=== PATIENT | male | born 1975 | race Two or more races ===

== ENCOUNTER 2024-05-03 19:42 | Inpatient (IN) | payer MEDICAID, OTHER ==
[~2024-05-03] VITALS: Ht 172.7 cm; Wt 95.0 kg
--- NOTE | 2024-05-03 20:03 | ED.PDOC ---
General HPI Comments 48 year old male who came to ER for flank pains. In has history of left-sided kidney stones, status post left nephrolithotomy. For the past 2 days, patient has been having right lower back pain, radiating towards her right flank and right lower quadrant. Complaining also of dysuria, nausea and vomiting. States she could not keep anything in, and currently also complaining of weakness and dizziness. Chief Complaint: Flank Pain Time Seen by MD: 20:02 Reviewed notes: Nurses Notes Allergies: Coded Allergies: NO KNOWN ALLERGIES (Unverified , 05/03/24) Information Source: Patient Mode of Arrival: EMS Severity: Moderate Inability to void: Mild Timing: Days Duration: Since onset Has not urinated for: Minutes Prehospital treatment: None Onset: Spontaneous Symptoms: Dysuria History of: UTI, Kidney stone Location: (R) Flank associated signs and symptoms: Abdominal Pain, Nausea, Vomiting, Flank Pain, Back Pain, Dysuria Past Medical History PAST MEDICAL HISTORY: Kidney Stones Surgical History: Hernia Repair Surgical History (Other): left kidney stone removal Family History Family History: Reviewed,noncontributory to illness Social History Smoker: Non-Smoker Alcohol: Denies ETOH Use Drugs: Denies Drug Use Lives In: Home Constitutional: denies: chills, diaphoresis, fatigue, fever, malaise, sweats, weakness, others EENTM: denies: blurred vision, double vision, ear bleeding, ear discharge, ear drainage, ear pain, ear ringing, eye pain, eye redness, hearing loss, mouth pa in, mouth swelling, nasal discharge, nose bleeding, nose congestion, nose pain, photophobia, tearing, throat pain, throat swelling, voice changes, others Respiratory: denies: cough, hemoptysis, orthopnea, SOB at rest, shortness of breath, SOB with excertion, stridor, wheezing, others Cardiovascular: denies: chest pain, dizzy spells, diaphoresis, Dyspnea on exertion, edema, irregular heart beat, left arm pain, lightheadedness, palpitations, PND, syncope, others Gastrointestinal: reports: abdominal pain, nausea, vomiting; denies: abdomen distended, blood streaked bowels, constipated, diarrhea, dysphagia, difficulty swallowing, hematemesis, melena, poor appetite, poor fluid intake, rectal bleeding, rectal pain, others Genitourinary: reports: dysuria, flank pain; denies: burning, frequency, hematuria, incontinence, penile discharge, penile sore, pain, testicle pain, testicle swelling, urgency, others Neurological: reports: dizziness, weakness; denies: fainting, headache, left sided numbness, left sided weakness, numbness, paresthesia, pre-existing deficit, right sided numbness, right sided weakness, seizure, speech problems, tingling, tremors, others Musculoskeletal: denies: back pain, gout, joint pain, joint swelling, muscle pain, muscle stiffness, neck pain, others Integumetry: denies: bruises, change in color, change in hair/nails, dryness, l aceration, lesions, lumps, rash, wounds, others Allergic/Immunocompromised: denies: Difficulty Healing, Frequent Infections, Hives, Itching, others Hematologic/Lymphatic: denies: anemia, blood clots, easy bleeding, easy bruising, swollen glands, others Endocrine: denies: excessive hunger, excessive sweating, excessive thirst, excessive urination, flushing, intolerance to cold, intolerance to heat, unexplained weight gain, unexplained weight loss, others Psychiatric: denies: anxiety, bipolar disorder, depression, hopeless, panic disorder, schizophrenia, sleepless, suicidal, others Physical Exam General Appearance: Moderate Distress, No Apparent Distress, Normal HEENT: Normal ENT Inspection, Pharynx Normal, TMs Normal Neck: Full Range of Motion, Non-Tender, Normal, Normal Inspection Respiratory: Chest Non-Tender, Lungs Clear, No Accessory Muscle Use, No Respiratory Distress, Normal Breath Sounds Cardiovascular: No Edema, No JVD, No Murmur, No Gallop, Normal Peripheral Pulses, Regular Rate/Rhythm Breast Exam: Deferred Gastrointestinal: No Organomegaly, No Pulsatile Mass, Normal Bowel Sounds, RLQ, Soft, Tenderness (right CVA') Genitalia: Deferred Pelvic: Deferred Rectal: Deferred Extremities: No calf tenderness, Normal capillary refill, Normal inspection, Normal range of motion, Non-tender, No pedal edema Musculoskeletal : Apperance: Normal Neurologic: Alert, life skills trainer II-XII nml as Tested, No Motor Deficits, Normal Affect, Normal Mood, No Sensory Deficits Cerebellar Function: Normal Reflexes: Normal Skin: Dry, Normal Color, Warm Lymphatic: No Adenopathy Was a procedure done? Was a procedure done?: No Differential Diagnosis Kidney stone (Female): N/A Kidney stone (Male): Pyelonephritis, Renal failure, Strain, Urinary obstruction, Urolithiasis, Renal infarction, Urinary tract infection Urinary Problem (Male): Urethritis, Urinary Retention, Urolithiasis, UTI X-Ray, Labs, Meds, VS Vital Signs Date Time Temp Pulse Resp B/P (MAP) Pulse Ox O2 Delivery O2 Flow Rate FiO2 05/03/24 21:20 115 21 98/57 (71) 96 05/03/24 20:29 113 18 97 Room Air* 0 21 05/03/24 20:29 113 18 106/67 (80) 97 05/03/24 19:53 97.7 115 22 104/64 (77) 97 Current Medications Medications (Trade) Dose Ordered Sig/Yaquelin Route Start Time Stop Time Status Last Admin Ondansetron HCl (Zofran) 4 mg ONCE ONCE IV 05/03/24 20:00 05/03/24 20:01 DC 05/03/24 20:34 Ketorolac Tromethamine (Toradol Injection) 30 mg ONCE ONCE IV 05/03/24 20:00 05/03/24 20:01 DC 05/03/24 20:34 Ceftriaxone Sodium 50 ml @ 100 mls/hr ONCE ONCE IV 05/03/24 20:00 05/03/24 20:29 DC 05/03/24 20:35 Sodium Chloride 2,000 ml @ 1,000 mls/hr Q2H ONCE IV 05/03/24 21:17 05/03/24 23:16 05/03/24 21:21 CT SCAN ABDOMEN AND PELVIS WITHOUT CONTRAST CLINICAL HISTORY: flank pain TECHNIQUE: Helical axial images are obtained from the lung bases through the pelvis without oral contrast. No intravenous contrast was administered. Coronal and sagittal reformatted images were generated from thin section reconstructions. One or more of the following radiation dose reduction techniques were used for this examination: automated exposure control, ad justment of the mA and/or kV according to patient size, use of iterative reconstruction technique. COMPARISON: None FINDINGS: LOWER THORAX: Imaged lung bases are grossly clear. ABDOMEN AND PELVIS: Evaluation of visceral and vascular structures is limited due to lack of contrast administration. As visualized, the unenhanced liver, spleen, pancreas and adrenals appear grossly unremarkable. No sizable, radiopaque cholelithiasis or biliary ductal dilatation appreciated. Moderate to severe right hydronephrosis. An approximately 1.5 x 0.6 cm calculus is seen within the right proximal ureter at the ureteropelvic junction. Right perinephric inflammatory changes. Additional nonobstructing bilateral renal calculi also noted. No evidence of abdominal aortic aneurysm. No evidence of bowel obstruction. Normal caliber appendix. No free intraperitoneal air or fluid identified. No sizable bladder calculus. Fat containing right inguinal hernia. No destructive osseous lesions identified. IMPRESSION: Obstructing right proximal ureteral calculus as above. Urinalysis urine drug screen CBC and CMP are pending. The patient will be admitted to the hospitalist for further evaluation and care. Time of 1ST Reevaluation: 19:56 Reevaluation 1ST: Unchanged Patient Education/Counseling: Diagnosis, Treatment Family Education/Counseling: No Family Present Departure 1 Departure Time of Disposition: 21:29 Impression: Primary Impression: Urethral calculus Disposition: ADMITTED INPATIENT Condition: Guarded Critical Care Note Critical Care Time?: No Stability Stability form required: No Heart Score Heart Score: Heart Score Response (Comments) Value History N/A 0 EKG N/A 0 Age N/A 0 Risk Factors N/A 0 Troponin N/A 0 Total 0 I personally scribed for AAKASH RIVERA MD ([email or web address]) on 05/03/24 at 20:03. El ectronically submitted by Tung Stevens ([email or web address]). I personally scribed for AAKASH RIVERA MD ([email or web address]) on 05/03/24 at 20:59. Electronically submitted by Tung Stevens ([email or web address]). AAKASH RIVERA MD May 03, 2024 20:03
[2024-05-03 20:29] VITALS: PULSE 113; RESP 18; O2SAT 97
[2024-05-03] MEDS: ONDANSETRON HCL 4 MG/2 ML VIAL IV ONE (20:34)
[2024-05-03] MEDS: KETOROLAC TROMETH 30 MG/ML 1ML VIAL IV ONE (20:34)
[2024-05-03] MEDS: cefTRIAXone 1GM/50ML D5W 50 ML IV ONE (20:35)
[2024-05-03] MEDS: HYDROmorphone HCL 2 MG/ML VL/or syr IV ONE (20:37)
--- NOTE | 2024-05-03 20:40 | DVH ---
CT SCAN ABDOMEN AND PELVIS WITHOUT CONTRAST CLINICAL HISTORY: flank pain TECHNIQUE: Helical axial images are obtained from the lung bases through the pelvis without oral cont rast. No intravenous contrast was administered. Coronal and sagittal reformatted images were generate d from thin section reconstructions. One or more of the following radiation dose reduction techniques were used for this examination: automated exposure control, adjustment of the mA and/or kV according to patient size, use of iterative reconstruction technique. COMPARISON: None FINDINGS: LOWER THORAX: Imaged lung bases are grossly clear. ABDOMEN AND PELVIS: Evaluation of visceral and vascular structures is limited due to lack of contrast administration. As visualized, the unenhanced liver, spleen, pancreas and adrenals appear grossly unremarkable. No si zable, radiopaque cholelithiasis or biliary ductal dilatation appreciated. Moderate to severe right hydronephrosis. An approximately 1.5 x 0.6 cm calculus is seen within the ri ght proximal ureter at the ureteropelvic junction. Right perinephric inflammatory changes. Additional nonobstructing bilateral renal calculi also noted. No evidence of abdominal aortic aneurysm. No evidence of bowel obstruction. Normal caliber appendix. No free intraperitoneal air or fluid iden tified. No sizable bladder calculus. Fat containing right inguinal hernia. No destructive osseous lesions identified. IMPRESSION: Obstructing right proximal ureteral calculus as above.
[2024-05-03] MEDS: SODIUM CHLORIDE 0.9% 2,000 ML IV ONE (21:21)
[2024-05-03 22:09] LABS: Alanine Aminotransferase 22 U/L (7-40); Albumin 3.5 g/dL (3.2-4.8); Alkaline Phosphatase 95 U/L (46-116); Anion Gap 12 (5-15); Aspartate Aminotransferase 19 U/L (13-40); Carbon Dioxide 24 mmol/L (20-31); Glucose 84 mg/dL (74-106); Potassium 4.2 mmol/L (3.5-5.1)
[2024-05-03 22:10] LABS: Bilirubin, Total 0.9 mg/dL (0.2-1.0); Total Protein 6.6 g/dL (5.7-8.2)
[2024-05-03 22:14] LABS: Blood Urea Nitrogen 73 mg/dL (9-23); Calcium 8.2 mg/dL (8.7-10.4); Chloride 92 mmol/L (98-107); Sodium 128 mmol/L (136-145)
[2024-05-03 23:17] LABS: Hematocrit 40.1 % (41.0-53.0); Hemoglobin 13.7 g/dL (13.5-17.5); Mean Corpuscular Hemoglobin 30.1 pg (28.0-32.0); Mean Corpuscular Hgb Conc. 34.1 g/dL (32.0-36.0); Mean Corpuscular Volume 88.2 fL (80.0-100.0); Platelet Count (auto) 79 10^3/uL (140-450); Red Blood Cells 4.55 10^6/uL (4.5-5.90); Red Cell Distribution Width 13.2 % (11.8-14.3); White Blood Cell 11.8 10^3/uL (4.4-10.8)
[2024-05-03 23:28] LABS: Basophils % (manual) 0 (0.0-2.0); Blast Cells 0; Eosinophils % (manual) 0 (0-7); Metamyelocytes % 0; Promyelocytes % 0; Reactive Lymphocytes 0
[2024-05-03] MEDS ORDERED: ACETAMINOPHEN 325 MG TAB PO PRN (23:45)
[2024-05-03] MEDS ORDERED: TEMAZEPAM 15 MG CAP PO PRN (23:45)
[2024-05-03 23:51] LABS: Band Neutrophils % (manual) 9; Large Platelets FEW; Lymphocytes % (manual) 5 (10.0-50.0); Monocytes % (manual) 5 (0-12); Myelocytes % 1; Platelet Estimate Decreased
[2024-05-04] VITALS (9 sets, daily range): BP systolic 86–135; BP diastolic 55–89; PULSE 79–115; RESP 14–27; TEMP 97.5–98.2; O2SAT 90–99
--- NOTE | 2024-05-04 00:16 | DVHHP2 ---
History of Present Illness Reason for Visit: Flank pain History of Present Illness 48-year-old male presents for evaluation of flank pain. Patient presents with a history of kidney stones. He reports a two day history of right-sided flank pain. Also reports nausea with vomiting. Denies dysuria. Reports intermittent chills. No other acute complaints reported. Past Medical History Kidney stones Past Surgical History Left nephrectomy Family History Noncontributory Smoke: No ALCOHOL: none Drugs: None Lives: with Family Review of Systems Review of Systems Review of systems are currently negative otherwise addressed in HPI. Allergies: Coded Allergies: NO KNOWN ALLERGIES (Unverified , 05/03/24) Medications Current Medications Medications Dose Ordered Sig/Yaquelin Route Start Time Stop Time Status Last Admin Dose Admin Acetaminophen/ Hydrocodone Bitart 1 tab Q4HP PRN PO 05/03/24 23:45 Temazepam 15 mg QHSP PRN PO 05/03/24 23:45 Ondansetron HCl 4 mg Q4HP PRN IV 05/03/24 23:45 Acetaminophen 650 mg Q6HP PRN PO 05/03/24 23:45 Morphine Sulfate 2 mg Q4HPRN PRN IV 05/03/24 23:45 Ceftriaxone Sodium 50 ml @ 100 mls/hr DAILY@09 IV 05/04/24 09:00 Exam Vital Signs Vital Signs Date Time Temp Pulse Resp B/P (MAP) Pulse Ox O2 Delivery O2 Flow Rate FiO2 05/04/24 00:00 100 19 98/56 (70) 05/03/24 23:03 99 05/03/24 20:29 Room Air* 0 21 05/03/24 19:53 97.7 Exam Gen: 48-year-old male in mild distress. Skin: Warm, dry, normal color and texture, no rash. HEENT: Normocephalic atraumatic, mucous membranes moist and pink. Neck: Cervical and supraclavicular nodes normal without enlargement, trachea is midline, thyroid gland is normal without masses. Pulmonary: Clear to auscultation and percussion bilaterally. Cardiac: Regular rate and rhythm. No murmur Abdomen: Soft, right CVA tenderness, nondistended, bowel sounds present all 4 quadrants, no guarding, no rigidity, no organomegaly. Extremities: No cyanosis, clubbing, no edema Neuro: Cranial nerves II through XII grossly intact, normal affect and speech, no focal motor deficits. Labs/Xrays ORDERING PHYSICIAN: AAKASH RIVERA MD PROCEDURE(s): ABPL - CT AB PEL WO CON-NO ORAL OR IV REASON: flank pain ORDER NUMBER(s): [id number], ACCESSION NUMBER(s): [id number] CT SCAN ABDOMEN AND PELVIS WITHOUT CONTRAST CLINICAL HISTORY: flank pain TECHNIQUE: Helical axial images are obtained from the lung bases through the pelvis without oral contrast. No intravenous contrast was administered. Coronal and sagittal reformatted images were generated from thin section reconstructions. One or more of the following radiation dose reduction techniques were used for this examination: automated exposure control, adjustment of the mA and/or kV according to patient size, use of iterative macey nstruction technique. COMPARISON: None FINDINGS: LOWER THORAX: Imaged lung bases are grossly clear. ABDOMEN AND PELVIS: Evaluation of visceral and vascular structures is limited due to lack of contrast administration. As visualized, the unenhanced liver, spleen, pancreas and adrenals appear grossly unremarkable. No sizable, radiopaque cholelithiasis or biliary ductal dilatation appreciated. Moderate to severe right hydronephrosis. An approximately 1.5 x 0.6 cm calculus is seen within the right proximal ureter at the ureteropelvic junction. Right perinephric inflammatory changes. Additional nonobstructing bilateral renal calc isis also noted. No evidence of abdominal aortic aneurysm. No evidence of bowel obstruction. Normal caliber appendix. No free intraperitoneal air or fluid identified. No sizable bladder calculus. Fat containing right inguinal hernia. No destructive osseous lesions identified. IMPRESSION: Obstructing right proximal ureteral calculus as above. Labs Test 05/03/24 21:40 Range/Units White Blood Count 11.8 H 4.4-10.8 10^3/uL Red Blood Count 4.55 4.5-5.90 10^6/uL Hemoglobin 13.7 13.5-17.5 g/dL Hematocrit 40.1 L 41.0-53.0 % Mean Corpuscular Volume 88.2 80.0-100.0 fL Mean Corpuscular Hemoglobin 30.1 28.0-32.0 pg Mean Corpuscular Hemoglobin Concent 34.1 32.0-36.0 g/dL Red Cell Distribution Width 13.2 11.8-14.3 % Platelet Count 79 L 140-450 10^3/uL Mean Platelet Volume 8.8 6.9-10.8 fL Neutrophils (%) (Auto) 37.0-80.0 % Lymphocytes (%) (Auto) 10.0-50.0 % Monocytes (%) (Auto) 0.0-12.0 % Basophils (%) (Auto) 0.0-2.0 % Neutrophils # (Auto) 1.6-8.6 10 ^3/uL Lymphocytes # (Auto) 0.4-5.4 10 ^3/uL Monocytes # (Auto) 0-1.3 10 ^3/uL Differential Total Cells Counted 100.0 100 Neutrophils % (Manual) 80 37.0-80.0 Band Neutrophils % (Manual) 9 Lymphocytes % (Manual) 5 L 10.0-50.0 Monocytes % (Manual) 5 0-12 Eosinophils % (Manual) 0 0-7 Basophils % (Manual) 0 0.0-2.0 Metamyelocytes % (manual) 0 Myelocytes % (Manual) 1 Promyelocytes % (Manual) 0 Blast Cells % (Manual) 0 Reactive Lymphocytes 0 Platelet Estimate Decreased Large Platelets Few [place] Cells Few Sodium Level 128 L 136-145 mmol/L Potassium Level 4.2 3.5-5.1 mmol/L Chloride Level 92 L 98-107 mmol/L Carbon Dioxide Level 24 20-31 mmol/L Anion Gap 12 5-15 Blood Urea Nitrogen 73 H 9-23 mg/dL Creatinine 5.21 H 0.700-1.30 mg/dL Glomerular Filtration Rate Calc 13 >90 mL/min BUN/Creatinine Ratio 14.0 10.0-20.0 Serum Glucose 84 74-106 mg/dL Calcium Level 8.2 L 8.7-10.4 mg/dL Total Bilirubin 0.9 0.2-1.0 mg/dL Aspartate Amino Transferase (AST) 19 13-40 U/L Alanine Aminotransferase (ALT) 22 7-40 U/L Alkaline Phosphatase 95 46-116 U/L Total Protein 6.6 5.7-8.2 g/dL Albumin 3.5 3.2-4.8 g/dL Assessment/Plan Assessment/Plan Assessment Obstructive uropathy Urethral calculus Severe right hydronephrosis Plan Admit the patient to [facility] [place] to the hospitalist Urology consultation Pain management Rocephin Continue treatment per orders. Plan discussed with: Patient My Orders Orders - JOHNATHON ADEN Procedure Category Date Status Time *Dr. [facility] CONS 05/03/24 Transmitted -[place] 23:13 * Urology Consult CONS 05/03/24 Transmitted 23:13 Drug Screen LAB 05/03/24 Logged 23:42 Urinalysis LAB 05/03/24 Logged 23:42 Basic Metabolic Panel LAB 05/04/24 Logged 04:00 Admit ADMIT 05/03/24 Transmitted 23:42 Renal DIET 05/04/24 Transmitted Standard(2gna,3gk,Lopho) Breakfast Hydrocodone-Acet PHA 05/03/24 In Process 5/325mg Tab ([place] 23:45 Temazepam (Restoril) PHA 05/03/24 In Process 23:45 Ondansetron Hcl PHA 05/03/24 In Process (Zofran) 23:45 Condition: Stable SHY 05/03/24 In Process 23:42 Acetaminophen Tablet PHA 05/03/24 In Process (Tylenol Tablet) 23:45 Bedrest With Bathroom SHY 05/03/24 In Process Privileg 23:42 Morphine Sulfate PHA 05/03/24 In Process Injection 23:45 Ceftriaxone 1gm/50ml PHA 05/04/24 In Process D5w (Rocephin) 09:00 Date of Service: May 03, 2024 Billing Provider: JOHNATHON ADEN Common Visit Codes: [id number] INP/OBS CARE (MOD) JOHNATHON ADEN May 04, 2024 00:16
[2024-05-04] MEDS: MORPHINE SULFATE INJ 2 MG/ml SYRG IV PRN (07:06)
[2024-05-04 07:39] LABS: Potassium 4.1 mmol/L (3.5-5.1)
[2024-05-04 07:40] LABS: Anion Gap 13 (5-15); Carbon Dioxide 24 mmol/L (20-31)
[2024-05-04 07:45] LABS: BUN/Creatinine Ratio 14.7 (10.0-20.0)
[2024-05-04 07:47] LABS: Blood Urea Nitrogen 79 mg/dL (9-23); Calcium 8.6 mg/dL (8.7-10.4); Chloride 94 mmol/L (98-107); Glucose 65 mg/dL (74-106); Sodium 131 mmol/L (136-145)
[2024-05-04] MEDS: cefTRIAXone 1GM/50ML D5W 50 ML IV SCH (08:44)
[2024-05-04] MEDS: SODIUM CHLORIDE 0.9% 1,000 ML IV SCH (09:00)
[2024-05-04 09:26] LABS: Amphetamine Screen, Urine Pos (NEGATIVE); Barbiturate Scree,Urine Neg (NEGATIVE); Cocaine Screen, Urine Neg (NEGATIVE)
[2024-05-04 09:39] LABS: Cannabinoid Screen, Urine Pos (NEGATIVE)
[2024-05-04] MEDS: HYDROcodone-ACET 5/325MG TAB PO PRN (10:25)
[2024-05-04 10:52] LABS: Benzodiazephine Screen, Urine Neg (NEGATIVE); Opiate Scree,Urine Neg (NEGATIVE); Phencyclidine Screen, Urine Neg (NEGATIVE)
--- NOTE | 2024-05-04 11:27 | DVHINCON2 ---
Date of service: May 04, 2024 Reason for Consultation Acute kidney injury History of Present Illness 48-year-old male past medical history of kidney stones. Reports last kidney stone was several years ago and reports on the left side which required a nephrostomy tube at that time. He is a poor historian. Says he has not seek medical attention in several years. He presents to the hospital complaining of flank pain. He is found to have proximal right UPJ obstructing kidney stone. Nephrology consulted due to elevated creatinine level. hs drug screen is + for methamphetamines Allergies: Coded Allergies: NO KNOWN ALLERGIES (Unverified , 05/03/24) Home Meds No Active Prescriptions or Reported Meds Current Medications Current Medications Medications (Trade) Dose Ordered Sig/Yaquelin Route PRN Reason Start Time Stop Time Status Last Admin Acetaminophen/ Hydrocodone Bitart (Cylinder 5/325MG Tab) 1 tab Q4HP PRN PO MODERATE PAIN (4-6 PAIN SCALE) 05/03/24 23:45 05/04/24 10:25 Temazepam (Restoril) 15 mg QHSP PRN PO FOR INSOMNIA 05/03/24 23:45 Ondansetron HCl (Zofran) 4 mg Q4HP PRN IV NAUSEA / VOMITING 05/03/24 23:45 Acetaminophen (Tylenol Tablet) 650 mg Q6HP PRN PO PAIN SCALE 1-3 OR TEMP>100.4 05/03/24 23:45 Morphine Sulfate 2 mg Q4HPRN PRN IV SEVERE PAIN (7-10 PAIN SCALE) 05/03/24 23:45 05/04/24 07:06 Ceftriaxone Sodium 50 ml @ 100 mls/hr DAILY@09 IV 05/04/24 09:00 05/04/24 08:44 Sodium Chloride 1,000 ml @ 125 mls/hr Q8H IV 05/04/24 09:00 05/04/24 09:00 Family History: Patient reports no known family medical history. Review of Systems Flank pain H&P Exam Vital Signs/I&O Vital Sign Date Time Temp Pulse Resp B/P (MAP) Pulse Ox O2 Delivery O2 Flow Rate FiO2 05/04/24 09:00 97.8 88 17 123/76 (92) 99 97.8 05/04/24 08:00 Room Air* 0 21 Intake and Output 05/03/24 05/04/24 19:00 07:00 Intake Total 50 ml Balance 50 ml Intake Oral 0 ml IV Total 50 ml Physical Exam Middle-aged male Body covered in tattoos Not in overt distress Abdomen soft Lungs clear Mild CVA tenderness on the right side No pitting edema Regular rate and rhythm Labs/Diagnostic Data Labs/Diagnostic Data Laboratory Tests Test 05/04/24 08:38 05/04/24 06:09 05/03/24 21:40 Range/Units Urine Opiates Screen Neg NEGATIVE Urine Fentanyl Screen Pos NEGATIVE Urine Barbiturates Screen Neg NEGATIVE Urine Phencyclidine Screen Neg NEGATIVE Urine Amphetamines Screen Pos NEGATIVE Urine Benzodiazepines Screen Neg NEGATIVE Urine Cocaine Screen Neg NEGATIVE Urine Cannabinoids Screen Pos NEGATIVE Sodium Level 131 L 128 L 136-145 mmol/L Potassium Level 4.1 4.2 3.5-5.1 mmol/L Chloride Level 94 L 92 L 98-107 mmol/L Carbon Dioxide Level 24 24 20-31 mmol/L Anion Gap 13 12 5-15 Blood Urea Nitrogen 79 H 73 H 9-23 mg/dL Creatinine 5.36 H 5.21 H 0.700-1.30 mg/dL Glomerular Filtration Rate Calc 12 13 >90 mL/min BUN/Creatinine Ratio 14.7 14.0 10.0-20.0 Serum Glucose 65 L 84 74-106 mg/dL Hemoglobin A1c 5.0 <5.7 % A1C Uric Acid 8.2 3.7-9.2 mg/dL Calcium Level 8.6 L 8.2 L 8.7-10.4 mg/dL Vitamin D 25-Hydroxy 18.3 L 30.0-100 ng/mL White Blood Count 11.8 H 4.4-10.8 10^3/uL Red Blood Count 4.55 4.5-5.90 10^6/uL Hemoglobin 13.7 13.5-17.5 g/dL Hematocrit 40.1 L 41.0-53.0 % Mean Corpuscular Volume 88.2 80.0-100.0 fL Mean Corpuscular Hemoglobin 30.1 28.0-32.0 pg Mean Corpuscular Hemoglobin Concent 34.1 32.0-36.0 g/dL Red Cell Distribution Width 13.2 11.8-14.3 % Platelet Count 79 L 140-450 10^3/uL Mean Platelet Volume 8.8 6.9-10.8 fL Neutrophils (%) (Auto) 37.0-80.0 % Lymphocytes (%) (Auto) 10.0-50.0 % Monocytes (%) (Auto) 0.0-12.0 % Basophils (%) (Auto) 0.0-2.0 % Neutrophils # (Auto) 1.6-8.6 10 ^3/uL Lymphocytes # (Auto) 0.4-5.4 10 ^3/uL Monocytes # (Auto) 0-1.3 10 ^3/uL Differential Total Cells Counted 100.0 100 Neutrophils % (Manual) 80 37.0-80.0 Band Neutrophils % (Manual) 9 Lymphocytes % (Manual) 5 L 10.0-50.0 Monocytes % (Manual) 5 0-12 Eosinophils % (Manual) 0 0-7 Basophils % (Manual) 0 0.0-2.0 Metamyelocytes % (manual) 0 Myelocytes % (Manual) 1 Promyelocytes % (Manual) 0 Blast Cells % (Manual) 0 Reactive Lymphocytes 0 Platelet Estimate Decreased Large Platelets Few [place] Cells Few Total Bilirubin 0.9 0.2-1.0 mg/dL Aspartate Amino Transferase (AST) 19 13-40 U/L Alanine Aminotransferase (ALT) 22 7-40 U/L Alkaline Phosphatase 95 46-116 U/L Total Protein 6.6 5.7-8.2 g/dL Albumin 3.5 3.2-4.8 g/dL Assessment Acute kidney injury in the setting of urinary obstruction Right obstructing kidney stone Urinary tract infection Methamphetamine abuse IV fluid hydration rate of 125 cc/hour Obtaining radiology consultation for percutaneous nephrostomy tube obtain PTH, uric acid and vitamin D level IV antibiotics and urinary culture There is no baseline renal function for comparison however patient is not altered at this time and electrolytes are within acceptable limits there is no emergent indication for hemodialysis at this time we will continue medical therapy. We will monitor closely Plan discussed with: Patient REMIGIO RIOS MD May 04, 2024 11:27
[2024-05-04] MEDS ORDERED: MEROPENEM 1GM IVPB 50 ML IV ONE (11:45)
[2024-05-04 11:48] LABS: Urine Bacteria FEW /hpf (None Seen); Urine Blood 1+ /uL (Negative); Urine Clarity Turbid (Clear); Urine Color Light-Orange (Yellow); Urine Mucus MANY (None Seen); Urine Protein, UAD 1+ (Negative); Urine Specific Gravity 1.011 (1.001-1.035); Urine Sperm PRESENT /hpf (None Seen); Urine Squamous Epithelial Cell None Seen /hpf (<5); Urine Urobilinogen Normal (Negative); Urine WBC 34 /HPF (0-3)
--- NOTE | 2024-05-04 11:50 | DVHPN2 ---
Progress Note Date Seen: May 04, 2024 Medical Necessity Reason Pt with a Central, PICC or Fol: No Subjective Patient reports: No new complaints Review of Systems: HEENT:Normal, CVS:Normal, RESPIRATORY:Normal, GI:Normal, :Normal, MSK:Normal, NEURO:Normal Objective vital signs Vital Sign Date Time Temp Pulse Resp B/P (MAP) Pulse Ox O2 Delivery O2 Flow Rate FiO2 05/04/24 09:00 97.8 88 17 123/76 (92) 99 97.8 05/04/24 08:00 Room Air* 0 21 Total Intake and Output 05/03/24 05/03/24 05/04/24 15:00 23:00 07:00 Intake Total 50 ml 0 ml Balance 50 ml 0 ml medications Current Medications Medications Dose Ordered Sig/Yaquelin Route Start Time Stop Time Status Last Admin Dose Admin Acetaminophen/ Hydrocodone Bitart 1 tab Q4HP PRN PO 05/03/24 23:45 05/04/24 10:25 1 TAB Temazepam 15 mg QHSP PRN PO 05/03/24 23:45 Ondansetron HCl 4 mg Q4HP PRN IV 05/03/24 23:45 Acetaminophen 650 mg Q6HP PRN PO 05/03/24 23:45 Morphine Sulfate 2 mg Q4HPRN PRN IV 05/03/24 23:45 05/04/24 07:06 2 MG Sodium Chloride 1,000 ml @ 125 mls/hr Q8H IV 05/04/24 09:00 05/04/24 09:00 125 MLS/HR Examination: GENERAL:Normal, HEENT:Normal, NECK:Normal, LUNGS:Normal, CVS:Normal, ABDOMEN:Normal, MSK:Normal, SKIN:Normal, NEURO:Normal, :Normal laboratory and microbiology Laboratory Tests 05/04/24 06:09 05/03/24 21:40 Test 05/04/24 06:09 Range/Units Serum Glucose 65 L 74-106 mg/dL Problem List/Assessment/Plan Problem List/Assessment/Plan #1 uti ?sepsis ?esbl: iv meropenem #2 right renal stone with hydronephrosis: nephrostomy tube #3 acute renal failure ? vasomotor nephropathy ?obstructive: ivf #4 drug abuse with amphetamines/fentanyl #5 thrombocytopenia advance care planning- full code- time spent 19 mins Plan discussed with: Patient My Orders My Orders Orders - JOHNATHON HORVATH MD Procedure Category Date Status Time Urine Bacterial NAREN 05/04/24 Transmitted Culture 11:44 Meropenem 1gm Ivpb X PHA 05/04/24 Transmitted ONE 11:45 Meropenem 1gm PHA 05/04/24 Transmitted Q8h(Gfr>50) 14:00 Complete Blood Count LAB 05/05/24 Verified 06:00 Comprehensive LAB 05/05/24 Verified Metabolic Panel 06:00 PTPTT LAB 05/05/24 Verified 04:00 Chest Portable XY 05/04/24 Verified 11:47 Date of Service: May 04, 2024 Billing Provider: JOHNATHON HORVATH MD Common Visit Codes: [id number] INP/OBS CARE(HIGH) Secondary Visit Codes: [id number] CARE PLAN 30 MINUTES JOHNATHON HORVATH MD May 04, 2024 11:50
[2024-05-04] MEDS: MEROPENEM 500MG IVPB 50 ML IV ONE (13:23)
--- NOTE | 2024-05-04 13:53 | DVH ---
CHEST RADIOGRAPH Indication: renal failure Technique: Single frontal view of the chest was obtained Comparison: None FINDINGS: Lines and Tubes: None Lungs: No focal consolidation. Pleura: No effusion. No pneumothorax. Cardiomediastinal contours: Unremarkable Bones: No acute osseous abnormality. IMPRESSION: No acute cardiopulmonary disease.
[2024-05-04] MEDS ORDERED: MEROPENEM 1GM IVPB 50 ML IV SCH (14:00)
[2024-05-04] MEDS: ERGOCALCIFEROL 50,000 UNIT(1.25MG) CAP PO SCH (15:00)
[2024-05-05] VITALS (13 sets, daily range): BP systolic 87–125; BP diastolic 60–75; PULSE 91–107; RESP 13–29; TEMP 97.5–98.1; O2SAT 92–98
[2024-05-05 06:41] LABS: Hematocrit 39.3 % (41.0-53.0); Hemoglobin 13.2 g/dL (13.5-17.5); Mean Corpuscular Hgb Conc. 33.6 g/dL (32.0-36.0)
[2024-05-05 06:44] LABS: Mean Corpuscular Hemoglobin 29.8 pg (28.0-32.0); Mean Corpuscular Volume 88.5 fL (80.0-100.0); Red Blood Cells 4.44 10^6/uL (4.5-5.90); Red Cell Distribution Width 13.7 % (11.8-14.3); White Blood Cell 17.3 10^3/uL (4.4-10.8)
[2024-05-05 06:48] LABS: INR 1.24 (0.9-1.15); Partial Thromboplastin Time 41.1 SEC (24.5-34.5); Prothrombin Time 12.9 sec (9.3-11.8)
[2024-05-05 07:08] LABS: Basophils % (manual) 0 (0.0-2.0); Blast Cells 0; Eosinophils % (manual) 0 (0-7); Metamyelocytes % 0; Myelocytes % 0; Promyelocytes % 0; Reactive Lymphocytes 0
[2024-05-05 07:39] LABS: Band Neutrophils % (manual) 2; Lymphocytes % (manual) 5 (10.0-50.0); Monocytes % (manual) 11 (0-12)
[2024-05-05 07:40] LABS: Platelet Estimate Decreased
[2024-05-05 07:41] LABS: Platelet Count (auto) 41 10^3/uL (140-450)
[2024-05-05] MEDS: SODIUM CHLORIDE 0.9% 2,050 ML IV ONE (07:45)
[2024-05-05 07:49] LABS: Alanine Aminotransferase 26 U/L (7-40); Anion Gap 14 (5-15); BUN/Creatinine Ratio 16.5 (10.0-20.0); Glucose 78 mg/dL (74-106); Total Protein 5.7 g/dL (5.7-8.2)
[2024-05-05 08:00] LABS: Albumin 2.9 g/dL (3.2-4.8); Alkaline Phosphatase 180 U/L (46-116); Aspartate Aminotransferase 42 U/L (13-40); Bilirubin, Total 2.7 mg/dL (0.2-1.0); Calcium 8.2 mg/dL (8.7-10.4); Carbon Dioxide 19 mmol/L (20-31); Chloride 94 mmol/L (98-107); Sodium 127 mmol/L (136-145)
[2024-05-05 08:04] LABS: Blood Urea Nitrogen 93 mg/dL (9-23)
--- NOTE | 2024-05-05 09:01 | DVH ---
INDICATION: HYDRONEPHROSIS TECHNIQUE: Multiple real-time sonographic images of the kidneys and bladder were obtained. COMPARISON: None FINDINGS: The right kidney measures 14 cm in length, which is normal in size. There is normal echogenicity of t he right kidney. Moderate right hydronephrosis The left kidney measures 10 cm in length, which is normal in size. There is normal echogenicity of th e left kidney. No hydronephrosis. No large intraluminal masses are seen in the bladder. IMPRESSION: moderate right hydronephrosis
[2024-05-05] MEDS: VANCOMYCIN 1GM/250ML KIT 250 ML IV ONE (09:29)
--- NOTE | 2024-05-05 10:05 | DVHPN2 ---
Progress Note Date Seen: May 05, 2024 Medical Necessity Reason Pt with a Central, PICC or Fol: No Subjective Patient reports: No new complaints Review of Systems: HEENT:Normal, CVS:Normal, RESPIRATORY:Normal, GI:Normal, :Normal, MSK:Normal, NEURO:Normal Objective vital signs Vital Sign Date Time Temp Pulse Resp B/P (MAP) Pulse Ox O2 Delivery O2 Flow Rate FiO2 05/05/24 09:20 97.7 100 18 94/61 (72) 94 97.7 05/04/24 20:00 Room Air* 0 21 Total Intake and Output 05/04/24 05/04/24 05/05/24 15:00 23:00 07:00 Intake Total 200 ml 3325 ml 1400 ml Output Total 825 ml 400 ml Balance 200 ml 2500 ml 1000 ml medications Current Medications Medications Dose Ordered Sig/Yaquelin Route Start Time Stop Time Status Last Admin Dose Admin Acetaminophen/ Hydrocodone Bitart 1 tab Q4HP PRN PO 05/03/24 23:45 05/05/24 00:13 1 TAB Temazepam 15 mg QHSP PRN PO 05/03/24 23:45 Ondansetron HCl 4 mg Q4HP PRN IV 05/03/24 23:45 Acetaminophen 650 mg Q6HP PRN PO 05/03/24 23:45 Morphine Sulfate 2 mg Q4HPRN PRN IV 05/03/24 23:45 05/05/24 02:57 2 MG Sodium Chloride 1,000 ml @ 125 mls/hr Q8H IV 05/04/24 09:00 05/05/24 00:18 125 MLS/HR Meropenem 50 ml @ 17 mls/hr Q12HR IV 05/05/24 12:00 Ergocalciferol 50,000 unit Q7D PO 05/04/24 15:00 Examination: GENERAL:Normal, HEENT:Normal, NECK:Normal, LUNGS:Normal, CVS:Normal, ABDOMEN:Normal, MSK:Normal, SKIN:Normal, NEURO:Normal, :Normal laboratory and microbiology Laboratory Tests 05/05/24 06:00 Test 05/05/24 06:00 Range/Units Serum Glucose 78 74-106 mg/dL Microbiology Date/Time Source Procedure Growth Status 05/04/24 13:36 Voided Urine Urine Culture - Preliminary Resulted Problem List/Assessment/Plan Problem List/Assessment/Plan #1 uti with sepsis ?esbl: iv meropenem #2 right renal stone with hydronephrosis: nephrostomy tube today #3 acute renal failure ? vasomotor nephropathy ?obstructive: ivf #4 drug abuse with amphetamines/fentanyl #5 thrombocytopenia #6 liver failure #7 hyponatremia advance care planning- full code- time spent 19 mins Plan discussed with: Patient My Orders My Orders Orders - JOHNATHON HORVATH MD Procedure Category Date Status Time Urine Bacterial NAREN 05/04/24 In Process Culture 11:44 Chest Portable XY 05/04/24 Resulted 11:47 Meropenem 500mg Ivpb PHA 05/05/24 In Process (Merrem 500mg/Ns) 12:00 Transfer Orders XFER 05/05/24 Transmitted 08:24 Us Guidance For US 05/05/24 Logged Needle Placeme 09:28 Date of Service: May 05, 2024 Billing Provider: JOHNATHON HORVATH MD Common Visit Codes: [id number] INP/OBS CARE(HIGH) JOHNATHON HORVATH MD May 05, 2024 10:05
[2024-05-05] MEDS: fentaNYL CITRATE 100 MCG/2 ML VL ONE ×2 (10:10→10:22)
[2024-05-05] MEDS: fentaNYL CITRATE 100 MCG/2 ML VL IV ONE (10:14)
[2024-05-05] MEDS: MIDAZOLAM HCL 2MG/2ML 2ml VIAL (1mg/ml) ONE (10:22)
[2024-05-05] MEDS: LIDOCAINE 2%HCL (LOCAL ANESTH.) INJ 20ML MDV ONE (10:23)
[2024-05-05] MEDS: IODIXANOL 320MG/ML 100ML BTL IV ONE (10:35)
[2024-05-05] MEDS: MEROPENEM 500MG IVPB 50 ML IV SCH (12:57)
--- NOTE | 2024-05-05 12:59 | DVHINCON2 ---
Date of service: May 05, 2024 Referring Physician Hospitalist Reason for Consultation Right hydronephrosis with obstructive uropathy History of Present Illness Patient admitted for right flank pain has bilateral nephrolithiasis and obstructing right proximal ureteral calculus with moderate hydronephrosis. He is undergoing a right percutaneous nephrostomy tube placement per Interventional Radiology at this time. 48 year old male who came to ER for flank pains. In has history of left-sided kidney stones, status post left nephrolithotomy. For the past 2 days, patient has been having right lower back pain, radiating towards her right flank and right lower quadrant. Complaining also of dysuria, nausea and vomiting. States she could not keep anything in, and currently also complaining of weakness and dizziness. Chief Complaint: Flank Pain Reviewed notes: Nurses Notes Allergies: Coded Allergies: NO KNOWN ALLERGIES (Unverified , 05/03/24) Information Source: Patient Mode of Arrival: EMS Severity: Moderate Inability to void: Mild Timing: Days Duration: Since onset Has not urinated for: Minutes Prehospital treatment: None Onset: Spontaneous Symptoms: Dysuria History of: UTI, Kidney stone Location: (R) Flank associated signs and symptoms: Abdominal Pain, Nausea, Vomiting, Flank Pain, Back Pain, Dysuria Past Medical History Kidney Stones Past Surgical History Hernia Repair Surgical History (Other): left kidney stone removal Family History: Patient reports no known family medical history. Allergies: Coded Allergies: NO KNOWN ALLERGIES (Unverified , 05/03/24) Home Meds No Active Prescriptions or Reported Meds Current Medications Current Medications Medications (Trade) Dose Ordered Sig/Yaquelin Route PRN Reason Start Time Stop Time Status Last Admin Meropenem 50 ml @ 17 mls/hr Q8HR IV 05/04/24 14:00 05/04/24 12:16 DC Meropenem 50 ml @ 17 mls/hr Q12HR IV 05/05/24 12:00 Ergocalciferol (Vitamin D 50,000 Unit) 50,000 unit Q7D PO 05/04/24 15:00 Review of Systems Constitutional: denies: chills, diaphoresis, fatigue, fever, malaise, sweats, weakness, others EENTM: denies: blurred vision, double vision, ear bleeding, ear discharge, ear drainage, ear pain, ear ringing, eye pain, eye redness, hearing loss, mouth pain, mouth swelling, nasal discharge, nose bleeding, nose congestion, nose pain, photophobia, tearing, throat pain, throat swelling, voice changes, others Respiratory: denies: cough, hemoptysis, orthopnea, SOB at rest, shortness of breath, SOB with excertion, stridor, wheezing, others Cardiovascular: denies: chest pain, dizzy spells, diaphoresis, Dyspnea on exertion, edema, irregular heart beat, left arm pain, lightheadedness, palpitations, PND, syncope, others Gastrointestinal: reports: abdominal pain, nausea, vomiting; denies: abdomen distended, blood streaked bowels, constipated, diarrhea, dysphagia, difficulty swallowing, hematemesis, melena, poor appetite, poor fluid intake, rectal bleeding, rectal pain, others Genitourinary: reports: dysuria, flank pain; denies: burning, frequency, hematuria, incontinence, penile discharge, penile sore, pain, testicle pain, testicle swelling, urgency, others Neurological: reports: dizziness, weakness; denies: fainting, headache, left sided numbness, left sided weakness, numbness, paresthesia, pre-existing deficit, right sided numbness, right sided weakness, seizure, speech problems, tingling, tremors, others Musculoskeletal: denies: back pain, gout, joint pain, joint swelling, muscle pain, muscle stiffness, neck pain, others Integumetry: denies: bruises, change in color, change in hair/nails, dryness, laceration, lesions, lumps, rash, wounds, others Allergic/Immunocompromised: denies: Difficulty Healing, Frequent Infections, Hives, Itching, others Hematologic/Lymphatic: denies: anemia, blood clots, easy bleeding, easy bruising, swollen glands, others Endocrine: denies: excessive hunger, excessive sweating, excessive thirst, excessive urination, flushing, intolerance to cold, intolerance to heat, unexplained weight gain, unexplained weight loss, others Psychiatric: denies: anxiety, bipolar disorder, depression, hopeless, panic disorder, schizophrenia, sleepless, suicidal, others Vital Signs Vital Signs Date Time Temp Pulse Resp B/P (MAP) Pulse Ox O2 Delivery O2 Flow Rate FiO2 05/05/24 10:14 91/65 05/05/24 09:20 97.7 100 18 94 97.7 05/05/24 08:00 Room Air* 0 21 Physical Exam General Appearance: Moderate Distress, No Apparent Distress, Normal HEENT: Normal ENT Inspection, Pharynx Normal, TMs Normal Neck: Full Range of Motion, Non-Tender, Normal, Normal Inspection Respiratory: Chest Non-Tender, Lungs Clear, No Accessory Muscle Use, No Respiratory Distress, Normal Breath Sounds Cardiovascular: No Edema, No JVD, No Murmur, No Gallop, Normal Peripheral Pulses, Regular Rate/Rhythm Breast Exam: Deferred Gastrointestinal: No Organomegaly, No Pulsatile Mass, Normal Bowel Sounds, RLQ, Soft, Tenderness (right CVA') Genitalia: Deferred Pelvic: Deferred Rectal: Deferred Extremities: No calf tenderness, Normal capillary refill, Normal inspection, Normal range of motion, Non-tender, No pedal edema Musculoskeletal : Apperance: Normal Neurologic: Alert, lime supervisor II-XII nml as Tested, No Motor Deficits, Normal Affect, Normal Mood, No Sensory Deficits Cerebellar Function: Normal Reflexes: Normal Skin: Dry, Normal Color, Warm Lymphatic: No Adenopathy Labs/Diagnostic Data Labs Test 05/05/24 09:20 05/05/24 06:00 05/04/24 08:38 05/04/24 06:09 Range/Units Lactic Acid Level 1.6 0.4-2.0 mmol/L White Blood Count 17.3 #H 4.4-10.8 10^3/uL Red Blood Count 4.44 L 4.5-5.90 10^6/uL Hemoglobin 13.2 L 13.5-17.5 g/dL Hematocrit 39.3 L 41.0-53.0 % Mean Corpuscular Volume 88.5 80.0-100.0 fL Mean Corpuscular Hemoglobin 29.8 28.0-32.0 pg Mean Corpuscular Hemoglobin Concent 33.6 32.0-36.0 g/dL Red Cell Distribution Width 13.7 11.8-14.3 % Platelet Count 41 L 140-450 10^3/uL Mean Platelet Volume 9.6 6.9-10.8 fL Neutrophils (%) (Auto) 37.0-80.0 % Lymphocytes (%) (Auto) 10.0-50.0 % Monocytes (%) (Auto) 0.0-12.0 % Basophils (%) (Auto) 0.0-2.0 % Neutrophils # (Auto) 1.6-8.6 10 ^3/uL Lymphocytes # (Auto) 0.4-5.4 10 ^3/uL Monocytes # (Auto) 0-1.3 10 ^3/uL Differential Total Cells Counted 100.0 100 Neutrophils % (Manual) 82 H 37.0-80.0 Band Neutrophils % (Manual) 2 Lymphocytes % (Manual) 5 L 10.0-50.0 Monocytes % (Manual) 11 0-12 Eosinophils % (Manual) 0 0-7 Basophils % (Manual) 0 0.0-2.0 Metamyelocytes % (manual) 0 Myelocytes % (Manual) 0 Promyelocytes % (Manual) 0 Blast Cells % (Manual) 0 Reactive Lymphocytes 0 Platelet Estimate Decreased Prothrombin Time 12.9 H 9.3-11.8 sec Prothrombin Time INR 1.24 H 0.9-1.15 Activated Partial Thromboplast Time 41.1 H 24.5-34.5 SEC Sodium Level 127 L 136-145 mmol/L Potassium Level 4.0 3.5-5.1 mmol/L Chloride Level 94 L 98-107 mmol/L Carbon Dioxide Level 19 L 20-31 mmol/L Anion Gap 14 5-15 Blood Urea Nitrogen 93 #*H 9-23 mg/dL Creatinine 5.64 H 0.700-1.30 mg/dL Glomerular Filtration Rate Calc 12 >90 mL/min BUN/Creatinine Ratio 16.5 10.0-20.0 Serum Glucose 78 74-106 mg/dL Calcium Level 8.2 L 8.7-10.4 mg/dL Phosphorus Level 4.0 2.4-5.1 mg/dL Total Bilirubin 2.7 H 0.2-1.0 mg/dL Aspartate Amino Transferase (AST) 42 H 13-40 U/L Alanine Aminotransferase (ALT) 26 7-40 U/L Alkaline Phosphatase 180 H 46-116 U/L Total Protein 5.7 5.7-8.2 g/dL Albumin 2.9 L 3.2-4.8 g/dL Urine Color Light-orange Yellow Urine Clarity Turbid H Clear Urine pH 8.0 5.0-9.0 Urine Specific [place] 1.011 1.001-1.035 Urine Protein 1+ H Negative Urine Ketones Negative Negative Urine Blood 1+ H Negative /uL Urine Nitrite Negative Negative Urine Bilirubin Negative Negative Urine Urobilinogen Normal Negative mg/dL Urine Leukocyte Esterase 3+ Negative /uL Urine RBC 1 0 - 3 /hpf Urine Microscopic WBC 34 H 0-3 /HPF Urine Squamous Epithelial Cells None seen <5 /hpf Urine Bacteria Few H None Seen /hpf Urine Mucus Many None Seen Urine Sperm Present None Seen /hpf Urine Glucose Normal Normal mg/dL Urine Opiates Screen Neg NEGATIVE Urine Fentanyl Screen Pos NEGATIVE Urine Barbiturates Screen Neg NEGATIVE Urine Phencyclidine Screen Neg NEGATIVE Urine Amphetamines Screen Pos NEGATIVE Urine Benzodiazepines Screen Neg NEGATIVE Urine Cocaine Screen Neg NEGATIVE Urine Cannabinoids Screen Pos NEGATIVE Hemoglobin A1c 5.0 <5.7 % A1C Uric Acid 8.2 3.7-9.2 mg/dL Creatine Kinase 30 L 46-171 U/L Vitamin D 25-Hydroxy 18.3 L 30.0-100 ng/mL Parathyroid Hormone (Intact) 465.3 H 18.4-80.1 pg/mL Test 05/03/24 21:40 Range/Units Large Platelets Few Spencer Cells Few Microbiology Date/Time Source Procedure Growth Status 05/04/24 13:36 Voided Urine Urine Culture - Preliminary Resulted PATIENT: CYNDI CASH ACCT: [id number] UNIT: [id number] : 1975 LOC: ER ROOM / BED: / AGE / SEX: 48 / M ADM STATUS: REG ER SERVICE 52 ORDERING PHYSICIAN: AAKASH RIVERA MD PROCEDURE(s): ABPL - CT AB PEL WO CON-NO ORAL OR IV REASON: flank pain ORDER NUMBER(s): [id number], ACCESSION NUMBER(s): [id number] CT SCAN ABDOMEN AND PELVIS WITHOUT CONTRAST CLINICAL HISTORY: flank pain TECHNIQUE: Helical axial images are obtained from the lung bases through the pelvis without oral contrast. No intravenous contrast was administered. Coronal and sagittal reformatted images were generated from thin section reconstructions. One or more of the following radiation dose reduction techniques were used for this examination: automated exposure control, adjustment of the mA and/or kV according to patient size, use of iterative reconstruction technique. COMPARISON: None FINDINGS: LOWER THORAX: Imaged lung bases are grossly clear. ABDOMEN AND PELVIS: Evaluation of visceral and vascular structures is limited due to lack of contra st administration. As visualized, the unenhanced liver, spleen, pancreas and adrenals appear grossly unremarkable. No sizable, radiopaque cholelithiasis or biliary ductal dilatation appreciated. Moderate to severe right hydronephrosis. An approximately 1.5 x 0.6 cm calculus is seen within the right proximal ureter at the ureteropelvic junction. Right perinephric inflammatory changes. Additional nonobstructing bilateral renal calculi also noted. No evidence of abdominal aortic aneurysm. No evidence of bowel obstruction. Normal caliber appendix. No free intraperitoneal air or fluid identified. No sizable bladder calculus. Fat containing right inguinal hernia. No destructive osseous lesions identified. IMPRESSION: Obstructing right proximal ureteral calculus as above. ATED BY: JONH CANTU MD DICTATED DATE/TIME: 05/03/242036 SIGNED BY: JONH CANTU MD SIGNED DATE/TIME: 05/03/242036 CC: Assessment Acute kidney injury home with azotemia (creatinine is 5.64) Obstructing right proximal ureteral calculus Bilateral nephrolithiasis Plan/Recommendation Right percutaneous nephrostomy tube placement Once the creatinine normalizes, patient will need to undergo lithotripsy as outpatient Plan discussed with: Patient, Other THOMAS DOWLING MD May 05, 2024 12:59
--- NOTE | 2024-05-05 15:08 | DVH ---
XY PERCUTANEOUS NEPHROSTOMY, HISTORY: NEPHRO TUBE due to septic stone. PROCEDURE: Informed consent was obtained. The patient was placed on the fluoroscopic table in a prone position and IV sedation administered. The right flank was prepped with chlorhexidine which was allo wed to dry and draped in the usual sterile fashion. Time out was performed. and the soft tissues infi ltrated with 1% lidocaine local anesthetic. Utilizing ultrasound guidance, a 21 gauge Accu Stick need le was advanced from a posterolateral approach into an lower/middle pole calyx, and a small amount of contrast was injected under fluoroscopy to confirm positioning. Over a mandril wire, exchange was ma de to a non-vascular access set, through which was advanced an 0.035 wire. Following serial dilation, an 8.5 Estonian multipurpose nephrostomy catheter was placed with tip pigtailed within the renal pelvi s. Position was confirmed with antegrade nephrostogram. The catheter was secured in place and connect ed to gravity drainage. A sterile dressing was applied. No immediate complication was identified. DAP 235 FLUOROSCOPY TIME: 2 minutes. CONTRAST USED: 10 mL Isovue 300. SEDATION: Dr. Saeed Farley was personally responsible for the administration of moderate sedation during the procedure performed, including the use of an independent trained observer who had no other duties during the procedure. The drugs utilized were IV fentanyl and versed (see nursing log for details). The total time of supervision by the attending physician was approximately 30 minutes. FINDINGS: Dilated right renal collecting system involving the calyces/renal pelvis/ureter to the leve l of the proximal ureter at the stone. New 8.5 Estonian nephrostomy tube via a posterior lower pole c alyceal access, with loop coiled within the renal pelvis. IMPRESSION: Right hydronephrosis due to septic obstructive kidney stone, status post placement of 8.5 Estonian righ t percutaneous nephrostomy catheter. PLAN: Routine catheter care.
--- NOTE | 2024-05-05 18:45 | DVHPN2 ---
Progress Note Date Seen: May 05, 2024 Medical Necessity Reason Pt with a Central, PICC or Fol: No Subjective Patient reports: Other Review of Systems: :Abnormal Objective vital signs Vital Sign Date Time Temp Pulse Resp B/P (MAP) Pulse Ox O2 Delivery O2 Flow Rate FiO2 05/05/24 18:00 97.8 92 16 125/75 97.8 05/05/24 17:25 95 05/05/24 08:00 Room Air* 0 21 Total Intake and Output 05/04/24 05/04/24 05/05/24 15:00 23:00 07:00 Intake Total 200 ml 3325 ml 1400 ml Output Total 825 ml 400 ml Balance 200 ml 2500 ml 1000 ml medications Current Medications Medications Dose Ordered Sig/Yaquelin Route Start Time Stop Time Status Last Admin Dose Admin Acetaminophen/ Hydrocodone Bitart 1 tab Q4HP PRN PO 05/03/24 23:45 05/05/24 00:13 1 TAB Temazepam 15 mg QHSP PRN PO 05/03/24 23:45 Ondansetron HCl 4 mg Q4HP PRN IV 05/03/24 23:45 Acetaminophen 650 mg Q6HP PRN PO 05/03/24 23:45 Morphine Sulfate 2 mg Q4HPRN PRN IV 05/03/24 23:45 05/05/24 13:49 2 MG Sodium Chloride 1,000 ml @ 125 mls/hr Q8H IV 05/04/24 09:00 05/05/24 09:00 125 MLS/HR Meropenem 50 ml @ 17 mls/hr Q12HR IV 05/05/24 12:00 05/05/24 12:57 17 MLS/HR Ergocalciferol 50,000 unit Q7D PO 05/04/24 15:00 Examination: ABDOMEN:Abnormal laboratory and microbiology Laboratory Tests 05/05/24 06:00 Test 05/05/24 06:00 Range/Units Serum Glucose 78 74-106 mg/dL Microbiology Date/Time Source Procedure Growth Status 05/04/24 13:36 Voided Urine Urine Culture - Preliminary Resulted Problem List/Assessment/Plan Problem List/Assessment/Plan Acute kidney injury in the setting of urinary obstruction Right obstructing kidney stone Urinary tract infection Methamphetamine abuse recs Nephrostomy tube by IR today Urology recommending outpatient lithotripsy IV antibiotics Evaluate HEALTH INFORMATION SPECIALIST needs closely Plan discussed with: Patient My Orders My Orders Orders - EDSON LEE MD Procedure Category Date Status Time Communication Order ORDERS 05/05/24 Transmitted 09:39 EDSON LEE MD May 05, 2024 18:45
[2024-05-06] VITALS (8 sets, daily range): BP systolic 111–136; BP diastolic 71–96; PULSE 82–102; RESP 16–20; TEMP 97.8–98.9; O2SAT 94–98
[2024-05-06 06:40] LABS: Alanine Aminotransferase 19 U/L (7-40); Anion Gap 12 (5-15); Aspartate Aminotransferase 33 U/L (13-40); BUN/Creatinine Ratio 21.6 (10.0-20.0); Chloride 99 mmol/L (98-107); Potassium 3.7 mmol/L (3.5-5.1)
[2024-05-06 06:41] LABS: Total Protein 5.7 g/dL (5.7-8.2)
[2024-05-06 06:52] LABS: Albumin 2.9 g/dL (3.2-4.8); Alkaline Phosphatase 154 U/L (46-116); Bilirubin, Total 1.9 mg/dL (0.2-1.0); Calcium 8.4 mg/dL (8.7-10.4); Carbon Dioxide 19 mmol/L (20-31); Glucose 74 mg/dL (74-106); Sodium 130 mmol/L (136-145)
[2024-05-06 06:54] LABS: Blood Urea Nitrogen 100 mg/dL (9-23)
[2024-05-06 07:15] LABS: Hematocrit 38.2 % (41.0-53.0); Mean Corpuscular Hemoglobin 29.8 pg (28.0-32.0); Mean Corpuscular Hgb Conc. 34.1 g/dL (32.0-36.0); Mean Corpuscular Volume 87.6 fL (80.0-100.0); Platelet Count (auto) 25 10^3/uL (140-450); Red Blood Cells 4.36 10^6/uL (4.5-5.90); Red Cell Distribution Width 13.7 % (11.8-14.3)
[2024-05-06 07:19] LABS: Basophils % (manual) 0 (0.0-2.0); Blast Cells 0; Lymphocytes % (manual) 0 (10.0-50.0); Metamyelocytes % 0; Myelocytes % 0; Promyelocytes % 0; Reactive Lymphocytes 0
[2024-05-06 07:43] LABS: Band Neutrophils % (manual) 1; Eosinophils % (manual) 3 (0-7); Monocytes % (manual) 12 (0-12); Platelet Estimate Markedly Decreased
[2024-05-06] MEDS: ONDANSETRON HCL 4 MG/2 ML VIAL IV PRN (08:13)
--- NOTE | 2024-05-06 11:23 | DVHPN2 ---
Progress Note Date Seen: May 06, 2024 Medical Necessity Reason Pt with a Central, PICC or Fol: No Subjective Patient reports: No new complaints Review of Systems: HEENT:Normal, CVS:Normal, RESPIRATORY:Normal, GI:Normal, :Normal, MSK:Normal, NEURO:Normal Objective vital signs Vital Sign Date Time Temp Pulse Resp B/P (MAP) Pulse Ox O2 Delivery O2 Flow Rate FiO2 05/06/24 08:32 97.8 87 16 135/96 (109) 96 97.8 05/06/24 08:00 Room Air* 0 21 Total Intake and Output 05/05/24 05/05/24 05/06/24 15:00 23:00 07:00 Intake Total 125 ml 627 ml 1250 ml Output Total 400 ml 3025 ml Balance -275 ml 627 ml -1775 ml medications Current Medications Medications Dose Ordered Sig/Yaquelin Route Start Time Stop Time Status Last Admin Dose Admin Acetaminophen/ Hydrocodone Bitart 1 tab Q4HP PRN PO 05/03/24 23:45 05/05/24 00:13 1 TAB Temazepam 15 mg QHSP PRN PO 05/03/24 23:45 Ondansetron HCl 4 mg Q4HP PRN IV 05/03/24 23:45 05/06/24 08:13 4 MG Acetaminophen 650 mg Q6HP PRN PO 05/03/24 23:45 Morphine Sulfate 2 mg Q4HPRN PRN IV 05/03/24 23:45 05/06/24 08:14 2 MG Sodium Chloride 1,000 ml @ 125 mls/hr Q8H IV 05/04/24 09:00 05/06/24 08:14 125 MLS/HR Meropenem 50 ml @ 17 mls/hr Q12HR IV 05/05/24 12:00 05/06/24 08:24 17 MLS/HR Ergocalciferol 50,000 unit Q7D PO 05/04/24 15:00 Examination: GENERAL:Normal, HEENT:Normal, NECK:Normal, LUNGS:Normal, CVS:Normal, ABDOMEN:Normal, MSK:Normal, SKIN:Normal, NEURO:Normal, :Normal, :Abnormal (RIGHT NEPHRSTOMY+) laboratory and microbiology Laboratory Tests 05/06/24 05:46 Test 05/06/24 05:46 Range/Units Serum Glucose 74 74-106 mg/dL Microbiology Date/Time Source Procedure Growth Status 05/05/24 09:20 Blood Blood Culture - Preliminary NO GROWTH AFTER 24 HOURS OF INCUBATION. Resulted 05/04/24 13:36 Voided Urine Urine Culture - Final Methicillin Resistant S.aureus Complete Problem List/Assessment/Plan Problem List/Assessment/Plan #1 uti with sepsis with mrsa: iv vanc, iv rocephin #2 right renal stone with hydronephrosis: nephrostomy tube #3 acute renal failure ? vasomotor nephropathy ?obstructive: ivf #4 drug abuse with amphetamines/fentanyl #5 thrombocytopenia #6 liver failure #7 hyponatremia advance care planning- full code- time spent 19 mins Plan discussed with: Patient Date of Service: May 06, 2024 Billing Provider: JOHNATHON HORVATH MD Common Visit Codes: [id number] INP/OBS CARE(HIGH) JOHNATHON HORVATH MD May 06, 2024 11:22
[2024-05-06] MEDS ORDERED: VANCOMYCIN PER PHARMACY 0 MG IV SCH (11:30)
--- NOTE | 2024-05-06 12:46 | DVHPN2 ---
Progress Note - Dictate Date Seen: May 06, 2024 Medical Necessity Reason Pt with a Central, PICC or Fol: No Medical Necessity Reason s/p right PNT placement vital signs Vital Sign Date Time Temp Pulse Resp B/P (MAP) Pulse Ox O2 Delivery O2 Flow Rate FiO2 05/06/24 12:32 98.9 87 17 124/79 (94) 97 98.9 05/06/24 08:00 Room Air* 0 21 Total Intake and Output 05/05/24 05/05/24 05/06/24 15:00 23:00 07:00 Intake Total 125 ml 627 ml 1250 ml Output Total 400 ml 3025 ml Balance -275 ml 627 ml -1775 ml medications Current Medications Medications Dose Ordered Sig/Yaquelin Route Start Time Stop Time Status Last Admin Dose Admin Acetaminophen/ Hydrocodone Bitart 1 tab Q4HP PRN PO 05/03/24 23:45 05/05/24 00:13 1 TAB Temazepam 15 mg QHSP PRN PO 05/03/24 23:45 Ondansetron HCl 4 mg Q4HP PRN IV 05/03/24 23:45 05/06/24 08:13 4 MG Acetaminophen 650 mg Q6HP PRN PO 05/03/24 23:45 Sodium Chloride 1,000 ml @ 125 mls/hr Q8H IV 05/04/24 09:00 05/06/24 08:14 125 MLS/HR Ergocalciferol 50,000 unit Q7D PO 05/04/24 15:00 Hydromorphone HCl 0.5 mg Q4HPRN PRN IV 05/06/24 11:30 UNV Lorazepam 0.5 mg Q8HP PRN IV 05/06/24 11:30 UNV Vancomycin HCl 0 ml @ 0 mls/hr UD IV 05/06/24 11:30 UNV Ceftriaxone Sodium 50 ml @ 100 mls/hr DAILY@09 IV 05/07/24 09:00 UNV objective The right percutaneous nephrostomy tube drainage shows vida/heme tinged urine laboratory and microbiology Laboratory Tests 05/06/24 05:46 Test 05/06/24 05:46 Range/Units Serum Glucose 74 74-106 mg/dL Problem List Right ureteral stone Bilateral renal stones Azotemia s/p PNT in situ Assessment/Plan Acute kidney injury home with azotemia (creatinine is 5.64 --> 4.62) Obstructing right proximal ureteral calculus Bilateral nephrolithiasis Maintain right PNT until creatinine normal. Right ESWL TBA as outpatient Plan discussed with: Patient, Spouse THOMAS DOWLING MD May 06, 2024 12:46
[2024-05-06] MEDS: HYDROmorphone HCL 2 MG/ML VL/or syr IV PRN (15:45)
--- NOTE | 2024-05-06 17:42 | DVHPN2 ---
Progress Note Date Seen: May 06, 2024 Medical Necessity Reason Pt with a Central, PICC or Fol: No Subjective Patient reports: Other (Complains of pain everywhere in the body) Review of Systems: Deferred Objective vital signs Vital Sign Date Time Temp Pulse Resp B/P (MAP) Pulse Ox O2 Delivery O2 Flow Rate FiO2 05/06/24 16:43 98.9 95 17 134/76 (95) 97 98.9 05/06/24 08:00 Room Air* 0 21 Total Intake and Output 05/05/24 05/05/24 05/06/24 15:00 23:00 07:00 Intake Total 125 ml 627 ml 1250 ml Output Total 400 ml 3025 ml Balance -275 ml 627 ml -1775 ml medications Current Medications Medications Dose Ordered Sig/Yaquelin Route Start Time Stop Time Status Last Admin Dose Admin Acetaminophen/ Hydrocodone Bitart 1 tab Q4HP PRN PO 05/03/24 23:45 05/06/24 12:58 1 TAB Temazepam 15 mg QHSP PRN PO 05/03/24 23:45 Ondansetron HCl 4 mg Q4HP PRN IV 05/03/24 23:45 05/06/24 15:44 4 MG Acetaminophen 650 mg Q6HP PRN PO 05/03/24 23:45 Sodium Chloride 1,000 ml @ 125 mls/hr Q8H IV 05/04/24 09:00 05/06/24 15:46 125 MLS/HR Ergocalciferol 50,000 unit Q7D PO 05/04/24 15:00 Hydromorphone HCl 0.5 mg Q4HPRN PRN IV 05/06/24 11:30 05/06/24 15:45 0.5 MG Lorazepam 0.5 mg Q8HP PRN IV 05/06/24 11:30 Vancomycin HCl 0 ml @ 0 mls/hr UD IV 05/06/24 11:30 UNV Ceftriaxone Sodium 50 ml @ 100 mls/hr DAILY@09 IV 05/07/24 09:00 laboratory and microbiology Laboratory Tests 05/06/24 05:46 Test 05/06/24 05:46 Range/Units Serum Glucose 74 74-106 mg/dL Microbiology Date/Time Source Procedure Growth Status 05/05/24 11:20 Aspirate Gram Stain - Final Resulted 05/05/24 11:20 Aspirate Body Fluid Culture - Preliminary Resulted 05/05/24 09:20 Blood Blood Culture - Preliminary NO GROWTH AFTER 24 HOURS OF INCUBATION. Resulted 05/04/24 13:36 Voided Urine Urine Culture - Final Methicillin Resistant S.aureus Complete Problem List/Assessment/Plan Problem List/Assessment/Plan Acute kidney injury in the setting of urinary obstruction Right obstructing kidney stone Urinary tract infection Methamphetamine abuse recs Nephrostomy tube by IR placed on 05/05/2024 Urology recommending outpatient lithotripsy IV antibiotics Pain management Renal function slightly getting better Plan discussed with: Patient EDSON LEE MD May 06, 2024 17:42
[2024-05-07] VITALS (8 sets, daily range): BP systolic 128–157; BP diastolic 68–98; PULSE 59–85; RESP 16–20; TEMP 97.8–98.6; O2SAT 95–98
[2024-05-07] MEDS: VANCOMYCIN 1GM/250ML KIT 250 ML IV SCH (00:28)
[2024-05-07 05:44] LABS: Hemoglobin 13.5 g/dL (13.5-17.5); Mean Corpuscular Hgb Conc. 34.4 g/dL (32.0-36.0); Red Blood Cells 4.44 10^6/uL (4.5-5.90)
[2024-05-07 05:46] LABS: Hematocrit 39.1 % (41.0-53.0); Mean Corpuscular Hemoglobin 30.3 pg (28.0-32.0); Mean Corpuscular Volume 88.1 fL (80.0-100.0); Platelet Count (auto) 35 10^3/uL (140-450); Red Cell Distribution Width 14.1 % (11.8-14.3); White Blood Cell 16.4 10^3/uL (4.4-10.8)
[2024-05-07 05:53] LABS: Anion Gap 10 (5-15); Chloride 100 mmol/L (98-107); Potassium 3.8 mmol/L (3.5-5.1)
[2024-05-07 05:59] LABS: BUN/Creatinine Ratio 23.2 (10.0-20.0); Glucose 96 mg/dL (74-106)
[2024-05-07 06:11] LABS: Basophils % (manual) 0 (0.0-2.0); Blast Cells 0; Metamyelocytes % 0; Myelocytes % 0; Promyelocytes % 0; Reactive Lymphocytes 0
[2024-05-07 06:21] LABS: Calcium 8.2 mg/dL (8.7-10.4); Carbon Dioxide 20 mmol/L (20-31); Sodium 130 mmol/L (136-145)
[2024-05-07 06:23] LABS: Blood Urea Nitrogen 97 mg/dL (9-23)
[2024-05-07 06:51] LABS: Band Neutrophils % (manual) 4; Eosinophils % (manual) 1 (0-7); Lymphocytes % (manual) 13 (10.0-50.0); Monocytes % (manual) 5 (0-12)
[2024-05-07 06:52] LABS: Platelet Estimate Decreased
[2024-05-07] MEDS: cefTRIAXone 1GM/50ML D5W 50 ML IV SCH (08:28)
--- NOTE | 2024-05-07 15:02 | DVHPN2 ---
Progress Note Date Seen: May 07, 2024 Medical Necessity Reason Pt with a Central, PICC or Fol: No Subjective Patient reports: No new complaints Review of Systems: Deferred Objective vital signs Vital Sign Date Time Temp Pulse Resp B/P (MAP) Pulse Ox O2 Delivery O2 Flow Rate FiO2 05/07/24 13:00 98.3 76 18 144/93 (110) 97 98.3 05/07/24 08:00 Room Air* 0 21 Total Intake and Output 05/06/24 05/06/24 05/07/24 15:00 23:00 07:00 Intake Total 2500 ml 2300 ml Output Total 2700 ml 1700 ml Balance -200 ml 600 ml medications Current Medications Medications Dose Ordered Sig/Yaquelin Route Start Time Stop Time Status Last Admin Dose Admin Acetaminophen/ Hydrocodone Bitart 1 tab Q4HP PRN PO 05/03/24 23:45 05/06/24 20:35 1 TAB Temazepam 15 mg QHSP PRN PO 05/03/24 23:45 Ondansetron HCl 4 mg Q4HP PRN IV 05/03/24 23:45 05/06/24 15:44 4 MG Acetaminophen 650 mg Q6HP PRN PO 05/03/24 23:45 Sodium Chloride 1,000 ml @ 125 mls/hr Q8H IV 05/04/24 09:00 05/07/24 01:54 125 MLS/HR Ergocalciferol 50,000 unit Q7D PO 05/04/24 15:00 Hydromorphone HCl 0.5 mg Q4HPRN PRN IV 05/06/24 11:30 05/07/24 10:05 0.5 MG Lorazepam 0.5 mg Q8HP PRN IV 05/06/24 11:30 Vancomycin HCl 0 ml @ 0 mls/hr UD IV 05/06/24 11:30 Ceftriaxone Sodium 50 ml @ 100 mls/hr DAILY@09 IV 05/07/24 09:00 05/07/24 08:28 100 MLS/HR Examination: GENERAL:Normal, HEENT:Normal, NECK:Normal, LUNGS:Normal, CVS:Normal, ABDOMEN:Normal, MSK:Normal, SKIN:Normal, NEURO:Normal, :Normal laboratory and microbiology Laboratory Tests 05/07/24 05:10 Test 05/07/24 05:10 Range/Units Serum Glucose 96 74-106 mg/dL Microbiology Date/Time Source Procedure Growth Status 05/05/24 11:20 Aspirate Gram Stain - Final Complete 05/05/24 11:20 Body Fluid Culture - Final Methicillin Resistant S.aureus#2 Methicillin Resistant S.aureus Complete 05/05/24 09:20 Blood Blood Culture - Preliminary NO GROWTH AFTER 48 HOURS OF INCUBATION. Resulted 05/04/24 13:36 Voided Urine Urine Culture - Final Methicillin Resistant S.aureus Complete Problem List/Assessment/Plan Problem List/Assessment/Plan Acute kidney injury in the setting of urinary obstruction Right obstructing kidney stone Urinary tract infection Methamphetamine /fentanyl abuse recs Nephrostomy tube by IR placed on 05/05/2024 Urology recommending outpatient lithotripsy IV antibiotics Pain management Renal function slightly getting better Plan discussed with: Patient, Other (girl frieend bedside) EDSON LEE MD May 07, 2024 15:02
--- NOTE | 2024-05-07 15:51 | DVHPN2 ---
Progress Note Date Seen: May 07, 2024 Medical Necessity Reason Pt with a Central, PICC or Fol: No Subjective Patient reports: No new complaints Review of Systems: HEENT:Normal, CVS:Normal, RESPIRATORY:Normal, GI:Normal, :Normal, MSK:Normal, NEURO:Normal Objective vital signs Vital Sign Date Time Temp Pulse Resp B/P (MAP) Pulse Ox O2 Delivery O2 Flow Rate FiO2 05/07/24 13:00 98.3 76 18 144/93 (110) 97 98.3 05/07/24 08:00 Room Air* 0 21 Total Intake and Output 05/06/24 05/06/24 05/07/24 15:00 23:00 07:00 Intake Total 2500 ml 2300 ml Output Total 2700 ml 1700 ml Balance -200 ml 600 ml medications Current Medications Medications Dose Ordered Sig/Yaquelin Route Start Time Stop Time Status Last Admin Dose Admin Acetaminophen/ Hydrocodone Bitart 1 tab Q4HP PRN PO 05/03/24 23:45 05/06/24 20:35 1 TAB Temazepam 15 mg QHSP PRN PO 05/03/24 23:45 Ondansetron HCl 4 mg Q4HP PRN IV 05/03/24 23:45 05/06/24 15:44 4 MG Acetaminophen 650 mg Q6HP PRN PO 05/03/24 23:45 Sodium Chloride 1,000 ml @ 125 mls/hr Q8H IV 05/04/24 09:00 05/07/24 01:54 125 MLS/HR Ergocalciferol 50,000 unit Q7D PO 05/04/24 15:00 Hydromorphone HCl 0.5 mg Q4HPRN PRN IV 05/06/24 11:30 05/07/24 10:05 0.5 MG Lorazepam 0.5 mg Q8HP PRN IV 05/06/24 11:30 Vancomycin HCl 0 ml @ 0 mls/hr UD IV 05/06/24 11:30 Ceftriaxone Sodium 50 ml @ 100 mls/hr DAILY@09 IV 05/07/24 09:00 05/07/24 08:28 100 MLS/HR Examination: GENERAL:Normal, HEENT:Normal, NECK:Normal, LUNGS:Normal, CVS:Normal, ABDOMEN:Normal, MSK:Normal, SKIN:Normal, NEURO:Normal, :Normal laboratory and microbiology Laboratory Tests 05/07/24 05:10 Test 05/07/24 05:10 Range/Units Serum Glucose 96 74-106 mg/dL Microbiology Date/Time Source Procedure Growth Status 05/05/24 11:20 Aspirate Gram Stain - Final Complete 05/05/24 11:20 Body Fluid Culture - Final Methicillin Resistant S.aureus#2 Methicillin Resistant S.aureus Complete 05/05/24 09:20 Blood Blood Culture - Preliminary NO GROWTH AFTER 48 HOURS OF INCUBATION. Resulted 05/04/24 13:36 Voided Urine Urine Culture - Final Methicillin Resistant S.aureus Complete Problem List/Assessment/Plan Problem List/Assessment/Plan #1 uti with sepsis with mrsa: iv vanc, iv rocephin #2 right renal stone with hydronephrosis: nephrostomy tube #3 acute renal failure ? vasomotor nephropathy ?obstructive: ivf #4 drug abuse with amphetamines/fentanyl #5 thrombocytopenia #6 liver failure #7 hyponatremia advance care planning- full code- time spent 19 mins Plan discussed with: Patient My Orders My Orders Orders - JOHNATHON HORVATH MD Procedure Category Date Status Time Vancomycin,Random LAB 05/08/24 Verified 05:00 Vancomycin Per SHY 05/07/24 In Process Pharmacy [facility] 15:37 Creatinine LAB 05/08/24 Verified 05:00 Date of Service: May 07, 2024 Billing Provider: JOHNATHON HORVATH MD Common Visit Codes: [id number] INP/OBS CARE(HIGH) JOHNATHON HORVATH MD May 07, 2024 15:51
[2024-05-08 01:00] VITALS: BP 161/84; PULSE 83; RESP 18; TEMP 98.4; O2SAT 99
[2024-05-08 05:00] VITALS: BP 128/82; PULSE 82; RESP 18; TEMP 98.4; O2SAT 96
[2024-05-08 06:59] LABS: Mean Corpuscular Hemoglobin 29.5 pg (28.0-32.0)
[2024-05-08 07:03] LABS: Hematocrit 42.4 % (41.0-53.0); Hemoglobin 14.1 g/dL (13.5-17.5); Mean Corpuscular Hgb Conc. 33.3 g/dL (32.0-36.0); Mean Corpuscular Volume 88.7 fL (80.0-100.0); Platelet Count (auto) 55 10^3/uL (140-450); Red Blood Cells 4.78 10^6/uL (4.5-5.90); Red Cell Distribution Width 14.2 % (11.8-14.3); White Blood Cell 28.5 10^3/uL (4.4-10.8)
[2024-05-08 07:17] LABS: Basophils % (manual) 0 (0.0-2.0); Blast Cells 0; Eosinophils % (manual) 0 (0-7); Metamyelocytes % 0; Myelocytes % 0; Promyelocytes % 0; Reactive Lymphocytes 0
[2024-05-08 07:21] LABS: Chloride 101 mmol/L (98-107); Potassium 3.6 mmol/L (3.5-5.1)
[2024-05-08 07:22] LABS: Anion Gap 10 (5-15); Carbon Dioxide 23 mmol/L (20-31)
[2024-05-08 07:27] LABS: BUN/Creatinine Ratio 29.4 (10.0-20.0); Glucose 82 mg/dL (74-106)
[2024-05-08 07:29] LABS: Calcium 8.4 mg/dL (8.7-10.4); Sodium 134 mmol/L (136-145)
[2024-05-08 07:32] LABS: Blood Urea Nitrogen 86 mg/dL (9-23)
[2024-05-08 08:18] LABS: Band Neutrophils % (manual) 2; Lymphocytes % (manual) 5 (10.0-50.0); Monocytes % (manual) 7 (0-12); Platelet Estimate Decreased
[2024-05-08 08:25] VITALS: BP 139/81; PULSE 84; RESP 18; TEMP 98.2; O2SAT 97
--- NOTE | 2024-05-08 10:41 | DVHPN2 ---
Progress Note Date Seen: May 08, 2024 Medical Necessity Reason Pt with a Central, PICC or Fol: No Subjective Patient reports: No new complaints Other Systems: Patient seen and examined by myself today in follow-up Objective vital signs Vital Sign Date Time Temp Pulse Resp B/P (MAP) Pulse Ox O2 Delivery O2 Flow Rate FiO2 05/08/24 08:25 98.2 84 18 139/81 (100) 97 98.2 05/07/24 20:00 Room Air* 0 21 Total Intake and Output 05/07/24 05/07/24 05/08/24 15:00 23:00 07:00 Intake Total 1125 ml 1750 ml 1800 ml Output Total 2100 ml 2300 ml Balance 1125 ml -350 ml -500 ml medications Current Medications Medications Dose Ordered Sig/Yaquelin Route Start Time Stop Time Status Last Admin Dose Admin Acetaminophen/ Hydrocodone Bitart 1 tab Q4HP PRN PO 05/03/24 23:45 05/06/24 20:35 1 TAB Temazepam 15 mg QHSP PRN PO 05/03/24 23:45 Ondansetron HCl 4 mg Q4HP PRN IV 05/03/24 23:45 05/06/24 15:44 4 MG Acetaminophen 650 mg Q6HP PRN PO 05/03/24 23:45 Sodium Chloride 1,000 ml @ 125 mls/hr Q8H IV 05/04/24 09:00 05/08/24 09:03 125 MLS/HR Ergocalciferol 50,000 unit Q7D PO 05/04/24 15:00 Hydromorphone HCl 0.5 mg Q4HPRN PRN IV 05/06/24 11:30 05/08/24 04:43 0.5 MG Lorazepam 0.5 mg Q8HP PRN IV 05/06/24 11:30 Vancomycin HCl 0 ml @ 0 mls/hr UD IV 05/06/24 11:30 Ceftriaxone Sodium 50 ml @ 100 mls/hr DAILY@09 IV 05/07/24 09:00 05/08/24 09:03 100 MLS/HR Examination: LUNGS:Normal, CVS:Normal, MSK:Normal laboratory and microbiology Laboratory Tests 05/08/24 06:31 Test 05/08/24 06:31 Range/Units Serum Glucose 82 74-106 mg/dL Microbiology Date/Time Source Procedure Growth Status 05/05/24 11:20 Aspirate Gram Stain - Final Complete 05/05/24 11:20 Body Fluid Culture - Final Methicillin Resistant S.aureus#2 Methicillin Resistant S.aureus Complete 05/05/24 09:20 Blood Blood Culture - Preliminary NO GROWTH AFTER 72 HOURS OF INCUBATION. Resulted 05/04/24 13:36 Voided Urine Urine Culture - Final Methicillin Resistant S.aureus Complete Problem List/Assessment/Plan Problem List/Assessment/Plan Acute kidney injury in the setting of urinary obstruction Right obstructing kidney stone Nephrostomy tube by IR placed on 05/05/2024 Urinary tract infection Methamphetamine /fentanyl abuse Recommendations Kidney function is improving Increased urine output Strict I&Os Urology recommending outpatient lithotripsy IV antibiotics Pain management We will continue to follow up Plan discussed with: Patient MAGDALENA BONILLA MD May 08, 2024 10:41
[2024-05-08 12:20] VITALS: BP 141/95; PULSE 76; RESP 18; TEMP 98.1; O2SAT 96
--- NOTE | 2024-05-08 13:18 | DVHPN2 ---
Reviewed: Care Plan, H&P, Labs, Medications, Previous Orders, Radiology Changes from previous H/P or p: No Changes General: Per HPI Objective Vitals Vital Signs Date Time Temp Pulse Resp B/P (MAP) Pulse Ox O2 Delivery O2 Flow Rate FiO2 05/08/24 12:20 98.1 76 18 141/95 (110) 96 98.1 05/08/24 08:00 Room Air* 0 21 Intake/Output Intake and Output 05/08/24 07:00 Intake Total 4675 ml Output Total 4400 ml Balance 275 ml Intake Oral 3500 ml IV Total 1175 ml Output Urine Total 4400 ml # Bowel Movements 10 Medications Current Medications Medications Dose Ordered Sig/Yaquelin Route Start Time Stop Time Status Last Admin Dose Admin Acetaminophen/ Hydrocodone Bitart 1 tab Q4HP PRN PO 05/03/24 23:45 05/06/24 20:35 1 TAB Temazepam 15 mg QHSP PRN PO 05/03/24 23:45 Ondansetron HCl 4 mg Q4HP PRN IV 05/03/24 23:45 05/06/24 15:44 4 MG Acetaminophen 650 mg Q6HP PRN PO 05/03/24 23:45 Sodium Chloride 1,000 ml @ 125 mls/hr Q8H IV 05/04/24 09:00 05/08/24 09:03 125 MLS/HR Ergocalciferol 50,000 unit Q7D PO 05/04/24 15:00 Hydromorphone HCl 0.5 mg Q4HPRN PRN IV 05/06/24 11:30 05/08/24 04:43 0.5 MG Lorazepam 0.5 mg Q8HP PRN IV 05/06/24 11:30 Vancomycin HCl 0 ml @ 0 mls/hr UD IV 05/06/24 11:30 Ceftriaxone Sodium 50 ml @ 100 mls/hr DAILY@09 IV 05/07/24 09:00 05/08/24 09:03 100 MLS/HR Laboratory Results Laboratory Tests 05/08/24 06:31 Chemistry Test 05/08/24 06:31 Calcium Level 8.4 mg/dL (8.7-10.4) L Urinalysis Test 05/04/24 08:38 Urine Color Light-orange (Yellow) Urine Clarity Turbid (Clear) H Urine pH 8.0 (5.0-9.0) Urine Specific [place] 1.011 (1.001-1.035) Urine Protein 1+ (Negative) H Urine Ketones Negative (Negative) Urine Blood 1+ /uL (Negative) H Urine Nitrite Negative (Negative) Urine Bilirubin Negative (Negative) Urine Urobilinogen Normal mg/dL (Negative) Urine Leukocyte Esterase 3+ /uL (Negative) Urine RBC 1 /hpf (0 - 3) Urine Microscopic WBC 34 /HPF (0-3) H Urine Squamous Epithelial Cells None seen /hpf (<5) Urine Bacteria Few /hpf (None Seen) H Urine Mucus Many (None Seen) Urine Sperm Present /hpf (None Seen) Urine Glucose Normal mg/dL (Normal) Microbiology Microbiology Date/Time Source Procedure Growth Status 05/05/24 11:20 Aspirate Gram Stain - Final Complete 05/05/24 11:20 Body Fluid Culture - Final Methicillin Resistant S.aureus#2 Methicillin Resistant S.aureus Complete 05/05/24 09:20 Blood Blood Culture - Preliminary Resulted 05/04/24 13:36 Voided Urine Urine Culture - Final Methicillin Resistant S.aureus Complete Labs and/or images reviewed: Labs reviewed by me, Image(s) reviewed by me Assessment/Plan Assessment/Plan #1 uti with sepsis with mrsa: iv vanc, iv rocephin #2 right renal stone with hydronephrosis: nephrostomy tube #3 acute renal failure ? vasomotor nephropathy ?obstructive: ivf #4 drug abuse with amphetamines/fentanyl #5 thrombocytopenia #6 liver failure #7 hyponatremia continue with tx of MRSA (bacteremia) Plan discussed with: Patient Date of Service: May 08, 2024 Billing Provider: JARRELL ROMERO DO Common Visit Codes: [id number] INP/OBS CARE(HIGH) JARRELL ROMERO DO May 08, 2024 13:18
[2024-05-08] MEDS: LORazepam 2MG/ML-1ML VIAL IV PRN (18:17)
[2024-05-08 20:00] VITALS: BP 154/91; PULSE 67; RESP 17; RESP 18; TEMP 98.2; O2SAT 96
[2024-05-09 01:00] VITALS: BP 122/85; PULSE 98; RESP 19; TEMP 99.3; O2SAT 96
[2024-05-09 05:00] VITALS: BP 120/79; PULSE 91; RESP 18; TEMP 98.4; O2SAT 97
[2024-05-09 08:20] VITALS: BP 142/87; PULSE 76; RESP 17; TEMP 97.9; O2SAT 95
--- NOTE | 2024-05-09 10:26 | DVHPN2 ---
Progress Note Date Seen: May 09, 2024 Medical Necessity Reason Pt with a Central, PICC or Fol: No Subjective Patient reports: No new complaints Other Systems: Patient seen and examined by myself today in follow-up Objective vital signs Vital Sign Date Time Temp Pulse Resp B/P (MAP) Pulse Ox O2 Delivery O2 Flow Rate FiO2 05/09/24 08:20 97.9 76 17 142/87 (105) 95 97.9 05/09/24 08:00 Room Air* 0 21 Total Intake and Output 05/08/24 05/08/24 05/09/24 15:00 23:00 07:00 Intake Total 50 ml 2600 ml 1000 ml Output Total 1600 ml Balance 50 ml 1000 ml 1000 ml medications Current Medications Medications Dose Ordered Sig/Yaquelin Route Start Time Stop Time Status Last Admin Dose Admin Acetaminophen/ Hydrocodone Bitart 1 tab Q4HP PRN PO 05/03/24 23:45 05/09/24 01:58 1 TAB Temazepam 15 mg QHSP PRN PO 05/03/24 23:45 Ondansetron HCl 4 mg Q4HP PRN IV 05/03/24 23:45 05/08/24 20:39 4 MG Acetaminophen 650 mg Q6HP PRN PO 05/03/24 23:45 Sodium Chloride 1,000 ml @ 125 mls/hr Q8H IV 05/04/24 09:00 05/09/24 08:38 125 MLS/HR Ergocalciferol 50,000 unit Q7D PO 05/04/24 15:00 Hydromorphone HCl 0.5 mg Q4HPRN PRN IV 05/06/24 11:30 05/09/24 05:44 0.5 MG Lorazepam 0.5 mg Q8HP PRN IV 05/06/24 11:30 05/08/24 18:17 0.5 MG Vancomycin HCl 0 ml @ 0 mls/hr UD IV 05/06/24 11:30 Ceftriaxone Sodium 50 ml @ 100 mls/hr DAILY@09 IV 05/07/24 09:00 05/09/24 08:39 100 MLS/HR Examination: LUNGS:Normal, CVS:Normal, MSK:Normal laboratory and microbiology Laboratory Tests 05/09/24 05:30 05/08/24 06:31 Test 05/08/24 06:31 Range/Units Serum Glucose 82 74-106 mg/dL Microbiology Date/Time Source Procedure Growth Status 05/05/24 11:20 Aspirate Gram Stain - Final Complete 05/05/24 11:20 Body Fluid Culture - Final Methicillin Resistant S.aureus#2 Methicillin Resistant S.aureus Complete 05/05/24 09:20 Blood Blood Culture - Preliminary Methicillin Resistant S.aureus Resulted 05/04/24 13:36 Voided Urine Urine Culture - Final Methicillin Resistant S.aureus Complete Problem List/Assessment/Plan Problem List/Assessment/Plan Acute kidney injury in the setting of urinary obstruction Right obstructing kidney stone Nephrostomy tube by IR placed on 05/05/2024 Urinary tract infection Methamphetamine /fentanyl abuse Recommendations Kidney function is improving Increased urine output Strict I&Os Urology recommending outpatient lithotripsy IV antibiotics Pain management We will continue to follow up Plan discussed with: Patient MAGDALENA BONILLA MD May 09, 2024 10:26
[2024-05-09 12:20] VITALS: BP 133/75; PULSE 73; RESP 17; TEMP 98.3; O2SAT 98
[2024-05-09] MEDS: VANCOMYCIN 500mg/100mL 100 ML IV ONE (13:19)
[2024-05-09 16:35] VITALS: BP 123/72; PULSE 87; RESP 17; TEMP 98.1; O2SAT 97
[2024-05-09 21:00] VITALS: BP 115/70; PULSE 85; RESP 18; TEMP 97.9; O2SAT 97
[2024-05-10 01:00] VITALS: BP 148/94; PULSE 92; RESP 18; TEMP 98.9; O2SAT 98
[2024-05-10 05:00] VITALS: BP 137/78; PULSE 80; RESP 18; TEMP 97.9; O2SAT 97
[2024-05-10 05:48] LABS: Anion Gap 9 (5-15); Carbon Dioxide 21 mmol/L (20-31); Chloride 105 mmol/L (98-107)
[2024-05-10 05:54] LABS: BUN/Creatinine Ratio 21.7 (10.0-20.0)
[2024-05-10 06:02] LABS: Blood Urea Nitrogen 35 mg/dL (9-23); Calcium 8.4 mg/dL (8.7-10.4); Glucose 108 mg/dL (74-106); Potassium 3.2 mmol/L (3.5-5.1); Sodium 135 mmol/L (136-145)
[2024-05-10 08:50] VITALS: BP 128/74; PULSE 75; RESP 17; TEMP 98; O2SAT 99
--- NOTE | 2024-05-10 11:11 | DVHPN2 ---
Progress Note Date Seen: May 10, 2024 Medical Necessity Reason Pt with a Central, PICC or Fol: No Subjective Patient reports: No new complaints Other Systems: Patient seen and examined by myself today in follow-up Objective vital signs Vital Sign Date Time Temp Pulse Resp B/P (MAP) Pulse Ox O2 Delivery O2 Flow Rate FiO2 05/10/24 08:50 98.0 75 17 128/74 (92) 99 98.0 05/10/24 08:00 Room Air* 0 21 Total Intake and Output 05/09/24 05/09/24 05/10/24 15:00 23:00 07:00 Intake Total 150 ml 1204 ml 1440 ml Output Total 810 ml 450 ml Balance 150 ml 394 ml 990 ml medications Current Medications Medications Dose Ordered Sig/Yaquelin Route Start Time Stop Time Status Last Admin Dose Admin Acetaminophen/ Hydrocodone Bitart 1 tab Q4HP PRN PO 05/03/24 23:45 05/09/24 01:58 1 TAB Temazepam 15 mg QHSP PRN PO 05/03/24 23:45 Ondansetron HCl 4 mg Q4HP PRN IV 05/03/24 23:45 05/08/24 20:39 4 MG Acetaminophen 650 mg Q6HP PRN PO 05/03/24 23:45 Sodium Chloride 1,000 ml @ 125 mls/hr Q8H IV 05/04/24 09:00 05/10/24 08:42 125 MLS/HR Ergocalciferol 50,000 unit Q7D PO 05/04/24 15:00 Hydromorphone HCl 0.5 mg Q4HPRN PRN IV 05/06/24 11:30 05/09/24 05:44 0.5 MG Lorazepam 0.5 mg Q8HP PRN IV 05/06/24 11:30 05/08/24 18:17 0.5 MG Vancomycin HCl 0 ml @ 0 mls/hr UD IV 05/06/24 11:30 Ceftriaxone Sodium 50 ml @ 100 mls/hr DAILY@09 IV 05/07/24 09:00 05/10/24 08:42 100 MLS/HR Examination: LUNGS:Normal, CVS:Normal, MSK:Normal laboratory and microbiology Laboratory Tests 05/10/24 05:07 05/08/24 06:31 Test 05/10/24 05:07 Range/Units Serum Glucose 108 H 74-106 mg/dL Microbiology Date/Time Source Procedure Growth Status 05/05/24 11:20 Aspirate Gram Stain - Final Complete 05/05/24 11:20 Body Fluid Culture - Final Methicillin Resistant S.aureus#2 Methicillin Resistant S.aureus Complete 05/05/24 09:20 Blood Blood Culture - Preliminary Methicillin Resistant S.aureus Resulted 05/04/24 13:36 Voided Urine Urine Culture - Final Methicillin Resistant S.aureus Complete Problem List/Assessment/Plan Problem List/Assessment/Plan Acute kidney injury in the setting of urinary obstruction Right obstructing kidney stone Nephrostomy tube by IR placed on 05/05/2024 Urinary tract infection Methamphetamine /fentanyl abuse Hypokalemia Recommendations Kidney function continues to improve Increased urine output Strict I&Os KCL replacement Urology recommending outpatient lithotripsy IV antibiotics Pain management I will sign off this case please reconsult as needed Thank you for the consult Plan discussed with: Patient MAGDALENA BONILLA MD May 10, 2024 11:11
[2024-05-10] MEDS: VANCOMYCIN 1GM/250ML KIT 250 ML IV ONE (12:30)
[2024-05-10 13:24] VITALS: BP 149/81; PULSE 95; RESP 17; TEMP 98.1; O2SAT 95
[2024-05-10] MEDS: POTASSIUM CHL 20 Meq TABLET PO ONE (13:58)
--- NOTE | 2024-05-10 14:36 | DVHPN2 ---
Reviewed: Care Plan, H&P, Labs, Medications, Previous Orders, Radiology Changes from previous H/P or p: No Changes General: Per HPI Objective Vitals Vital Signs Date Time Temp Pulse Resp B/P (MAP) Pulse Ox O2 Delivery O2 Flow Rate FiO2 05/10/24 13:24 98.1 95 17 149/81 (103) 95 98.1 05/10/24 08:00 Room Air* 0 21 Intake/Output Intake and Output 05/10/24 07:00 Intake Total 2794 ml Output Total 1260 ml Balance 1534 ml Intake Oral 2644 ml IV Total 150 ml Output Urine Total 1260 ml # Voids 3 # Bowel Movements 4 Medications Current Medications Medications Dose Ordered Sig/Yaquelin Route Start Time Stop Time Status Last Admin Dose Admin Acetaminophen/ Hydrocodone Bitart 1 tab Q4HP PRN PO 05/03/24 23:45 05/09/24 01:58 1 TAB Temazepam 15 mg QHSP PRN PO 05/03/24 23:45 Ondansetron HCl 4 mg Q4HP PRN IV 05/03/24 23:45 05/08/24 20:39 4 MG Acetaminophen 650 mg Q6HP PRN PO 05/03/24 23:45 Sodium Chloride 1,000 ml @ 125 mls/hr Q8H IV 05/04/24 09:00 05/10/24 08:42 125 MLS/HR Ergocalciferol 50,000 unit Q7D PO 05/04/24 15:00 Hydromorphone HCl 0.5 mg Q4HPRN PRN IV 05/06/24 11:30 05/09/24 05:44 0.5 MG Lorazepam 0.5 mg Q8HP PRN IV 05/06/24 11:30 05/08/24 18:17 0.5 MG Vancomycin HCl 0 ml @ 0 mls/hr UD IV 05/06/24 11:30 Ceftriaxone Sodium 50 ml @ 100 mls/hr DAILY@09 IV 05/07/24 09:00 05/10/24 08:42 100 MLS/HR Laboratory Results Laboratory Tests 05/08/24 06:31 05/10/24 05:07 Chemistry Test 05/10/24 05:07 Calcium Level 8.4 mg/dL (8.7-10.4) L Urinalysis Test 05/04/24 08:38 Urine Color Light-orange (Yellow) Urine Clarity Turbid (Clear) H Urine pH 8.0 (5.0-9.0) Urine Specific [place] 1.011 (1.001-1.035) Urine Protein 1+ (Negative) H Urine Ketones Negative (Negative) Urine Blood 1+ /uL (Negative) H Urine Nitrite Negative (Negative) Urine Bilirubin Negative (Negative) Urine Urobilinogen Normal mg/dL (Negative) Urine Leukocyte Esterase 3+ /uL (Negative) Urine RBC 1 /hpf (0 - 3) Urine Microscopic WBC 34 /HPF (0-3) H Urine Squamous Epithelial Cells None seen /hpf (<5) Urine Bacteria Few /hpf (None Seen) H Urine Mucus Many (None Seen) Urine Sperm Present /hpf (None Seen) Urine Glucose Normal mg/dL (Normal) Microbiology Microbiology Date/Time Source Procedure Growth Status 05/05/24 11:20 Aspirate Gram Stain - Final Complete 05/05/24 11:20 Body Fluid Culture - Final Methicillin Resistant S.aureus#2 Methicillin Resistant S.aureus Complete 05/05/24 09:20 Blood Blood Culture - Final Methicillin Resistant S.aureus Complete 05/04/24 13:36 Voided Urine Urine Culture - Final Methicillin Resistant S.aureus Complete Assessment/Plan Assessment/Plan #1 uti with sepsis with mrsa: iv vanc, iv rocephin #2 right renal stone with hydronephrosis: nephrostomy tube #3 acute renal failure ? vasomotor nephropathy ?obstructive: ivf #4 drug abuse with amphetamines/fentanyl #5 thrombocytopenia #6 liver failure #7 hyponatremia continue with MRSA tx Plan discussed with: Other (nursing) Date of Service: May 09, 2024 Billing Provider: JARRELL ROMERO DO Common Visit Codes: [id number] INP/OBS CARE(HIGH) JARRELL ROMERO DO May 10, 2024 14:36
--- NOTE | 2024-05-10 14:38 | DVHPN2 ---
Reviewed: Care Plan, H&P, Labs, Medications, Previous Orders, Radiology Changes from previous H/P or p: No Changes General: Per HPI Objective Vitals Vital Signs Date Time Temp Pulse Resp B/P (MAP) Pulse Ox O2 Delivery O2 Flow Rate FiO2 05/10/24 13:24 98.1 95 17 149/81 (103) 95 98.1 05/10/24 08:00 Room Air* 0 21 Intake/Output Intake and Output 05/10/24 07:00 Intake Total 2794 ml Output Total 1260 ml Balance 1534 ml Intake Oral 2644 ml IV Total 150 ml Output Urine Total 1260 ml # Voids 3 # Bowel Movements 4 Medications Current Medications Medications Dose Ordered Sig/Yaquelin Route Start Time Stop Time Status Last Admin Dose Admin Acetaminophen/ Hydrocodone Bitart 1 tab Q4HP PRN PO 05/03/24 23:45 05/09/24 01:58 1 TAB Temazepam 15 mg QHSP PRN PO 05/03/24 23:45 Ondansetron HCl 4 mg Q4HP PRN IV 05/03/24 23:45 05/08/24 20:39 4 MG Acetaminophen 650 mg Q6HP PRN PO 05/03/24 23:45 Sodium Chloride 1,000 ml @ 125 mls/hr Q8H IV 05/04/24 09:00 05/10/24 08:42 125 MLS/HR Ergocalciferol 50,000 unit Q7D PO 05/04/24 15:00 Hydromorphone HCl 0.5 mg Q4HPRN PRN IV 05/06/24 11:30 05/09/24 05:44 0.5 MG Lorazepam 0.5 mg Q8HP PRN IV 05/06/24 11:30 05/08/24 18:17 0.5 MG Vancomycin HCl 0 ml @ 0 mls/hr UD IV 05/06/24 11:30 Ceftriaxone Sodium 50 ml @ 100 mls/hr DAILY@09 IV 05/07/24 09:00 05/10/24 08:42 100 MLS/HR Laboratory Results Laboratory Tests 05/08/24 06:31 05/10/24 05:07 Chemistry Test 05/10/24 05:07 Calcium Level 8.4 mg/dL (8.7-10.4) L Urinalysis Test 05/04/24 08:38 Urine Color Light-orange (Yellow) Urine Clarity Turbid (Clear) H Urine pH 8.0 (5.0-9.0) Urine Specific [place] 1.011 (1.001-1.035) Urine Protein 1+ (Negative) H Urine Ketones Negative (Negative) Urine Blood 1+ /uL (Negative) H Urine Nitrite Negative (Negative) Urine Bilirubin Negative (Negative) Urine Urobilinogen Normal mg/dL (Negative) Urine Leukocyte Esterase 3+ /uL (Negative) Urine RBC 1 /hpf (0 - 3) Urine Microscopic WBC 34 /HPF (0-3) H Urine Squamous Epithelial Cells None seen /hpf (<5) Urine Bacteria Few /hpf (None Seen) H Urine Mucus Many (None Seen) Urine Sperm Present /hpf (None Seen) Urine Glucose Normal mg/dL (Normal) Microbiology Microbiology Date/Time Source Procedure Growth Status 05/05/24 11:20 Aspirate Gram Stain - Final Complete 05/05/24 11:20 Body Fluid Culture - Final Methicillin Resistant S.aureus#2 Methicillin Resistant S.aureus Complete 05/05/24 09:20 Blood Blood Culture - Final Methicillin Resistant S.aureus Complete 05/04/24 13:36 Voided Urine Urine Culture - Final Methicillin Resistant S.aureus Complete Assessment/Plan Assessment/Plan #1 uti with sepsis with mrsa: iv vanc, iv rocephin #2 right renal stone with hydronephrosis: nephrostomy tube #3 acute renal failure ? vasomotor nephropathy ?obstructive: ivf #4 drug abuse with amphetamines/fentanyl #5 thrombocytopenia #6 liver failure #7 hyponatremia 05/10/2024 repeat blood culture if cleared up, then pt can be discharged with further Abx Plan discussed with: Patient Date of Service: May 10, 2024 Billing Provider: JARRELL ROMERO DO Common Visit Codes: [id number] INP/OBS CARE(HIGH) JARRELL ROMERO DO May 10, 2024 14:38
[2024-05-10 17:32] VITALS: BP 136/92; PULSE 89; RESP 17; TEMP 98.5; O2SAT 99
[2024-05-10 21:00] VITALS: BP 142/85; PULSE 81; RESP 16; TEMP 98.2; O2SAT 99
[2024-05-10] MEDS: SODIUM CHLORIDE 0.9% 1,000 ML IV SCH (21:00)
[2024-05-11 05:00] VITALS: BP 127/74; PULSE 85; RESP 16; TEMP 97.2; O2SAT 98
[2024-05-11 06:22] LABS: Anion Gap 11 (5-15)
[2024-05-11 06:26] LABS: Chloride 107 mmol/L (98-107); Potassium 3.5 mmol/L (3.5-5.1); Sodium 135 mmol/L (136-145)
[2024-05-11 06:27] LABS: Calcium 8.4 mg/dL (8.7-10.4); Carbon Dioxide 17 mmol/L (20-31)
[2024-05-11 06:33] LABS: Blood Urea Nitrogen 24 mg/dL (9-23); Glucose 134 mg/dL (74-106)
[2024-05-11 09:00] VITALS: BP_SYST 145; BP_SYST 161; BP_DIAS 91; BP_DIAS 93; PULSE 95; RESP 17; TEMP 98.1; O2SAT 99
--- NOTE | 2024-05-11 11:22 | DVHPN2 ---
Progress Note Date Seen: May 11, 2024 Medical Necessity Reason Pt with a Central, PICC or Fol: No Subjective Patient reports: No new complaints Review of Systems: HEENT:Normal, CVS:Normal, RESPIRATORY:Normal, GI:Normal, :Normal, MSK:Normal, NEURO:Normal Objective vital signs Vital Sign Date Time Temp Pulse Resp B/P (MAP) Pulse Ox O2 Delivery O2 Flow Rate FiO2 05/11/24 09:00 98.1 95 17 145/91 (109) 99 98.1 05/11/24 07:58 Room Air* 0 21 Total Intake and Output 05/10/24 05/10/24 05/11/24 15:00 23:00 07:00 Intake Total 950 ml 800 ml Output Total 350 ml 1050 ml Balance 600 ml -250 ml medications Current Medications Medications Dose Ordered Sig/Yaquelin Route Start Time Stop Time Status Last Admin Dose Admin Acetaminophen/ Hydrocodone Bitart 1 tab Q4HP PRN PO 05/03/24 23:45 05/09/24 01:58 1 TAB Ondansetron HCl 4 mg Q4HP PRN IV 05/03/24 23:45 05/08/24 20:39 4 MG Acetaminophen 650 mg Q6HP PRN PO 05/03/24 23:45 Ergocalciferol 50,000 unit Q7D PO 05/04/24 15:00 Hydromorphone HCl 0.5 mg Q4HPRN PRN IV 05/06/24 11:30 05/09/24 05:44 0.5 MG Lorazepam 0.5 mg Q8HP PRN IV 05/06/24 11:30 05/08/24 18:17 0.5 MG Vancomycin HCl 0 ml @ 0 mls/hr UD IV 05/06/24 11:30 Ceftriaxone Sodium 50 ml @ 100 mls/hr DAILY@09 IV 05/07/24 09:00 05/11/24 08:33 100 MLS/HR Sodium Chloride 1,000 ml @ 100 mls/hr Q10H IV 05/11/24 11:00 UNV Examination: GENERAL:Normal, HEENT:Normal, NECK:Normal, LUNGS:Normal, CVS:Normal, ABDOMEN:Normal, MSK:Normal, SKIN:Normal, NEURO:Normal, :Normal laboratory and microbiology Laboratory Tests 05/11/24 05:32 05/08/24 06:31 Test 2/24/25 05:32 Range/Units Serum Glucose 134 H 74-106 mg/dL Microbiology Date/Time Source Procedure Growth Status 05/05/24 11:20 Aspirate Gram Stain - Final Complete 05/05/24 11:20 Body Fluid Culture - Final Methicillin Resistant S.aureus#2 Methicillin Resistant S.aureus Complete 05/05/24 09:20 Blood Blood Culture - Final Methicillin Resistant S.aureus Complete 05/04/24 13:36 Voided Urine Urine Culture - Final Methicillin Resistant S.aureus Complete Problem List/Assessment/Plan Problem List/Assessment/Plan #1 uti with sepsis with mrsa: iv vanc, iv rocephin #2 right renal stone with hydronephrosis: nephrostomy tube #3 acute renal failure ? vasomotor nephropathy ?obstructive: ivf #4 drug abuse with amphetamines/fentanyl #5 thrombocytopenia #6 liver failure #7 hyponatremia advance care planning- full code- time spent 19 mins Plan discussed with: Patient My Orders My Orders Orders - JOHNATHON HORVATH MD Procedure Category Date Status Time Vancomycin PHA 05/11/24 In Process 1.25gm/250ml 10:45 Complete Blood Count LAB 05/12/24 Verified 04:00 Creatinine LAB 05/12/24 Verified 04:00 Vancomycin,Random LAB 05/12/24 Verified 04:00 Sodium Chloride 0.9% PHA 05/11/24 Logged 11:00 Complete Blood Count LAB 05/12/24 Verified 06:00 Comprehensive LAB 05/12/24 Verified Metabolic Panel 06:00 Discontinue Tele SHY 05/11/24 In Process 10:56 Transfer Orders XFER 05/11/24 Transmitted 10:56 Date of Service: May 11, 2024 Billing Provider: JOHNATHON HORVATH MD Common Visit Codes: [id number] INP/OBS CARE(HIGH) JOHNATHON HORVATH MD May 11, 2024 11:22
[2024-05-11] MEDS: VANCOMYCIN 1.25GM/250ML 250 ML IV ONE (11:29)
[2024-05-11 12:14] VITALS: BP 148/90; PULSE 90; RESP 17; TEMP 98.5; O2SAT 98
--- NOTE | 2024-05-11 14:55 | MEDREC ---
[facility] Intervention Section I [facility] Intervention: Deescalate AB based on CS (PLEASE CONSIDER DE-ESCALATION ACCORDING TO CULTURE RESULTS (MRSA) ) HARINDER RUDOLPH PHARMACIST May 11, 2024 14:55
[2024-05-11 16:36] VITALS: BP 146/96; PULSE 17; TEMP 98.2; O2SAT 98
[2024-05-11 20:00] VITALS: PULSE 18; RESP 18; O2SAT 97
[2024-05-11 21:00] VITALS: BP 145/85; PULSE 88; RESP 18; TEMP 98.9; O2SAT 97
[2024-05-12 05:00] VITALS: BP 140/80; PULSE 85; RESP 18; TEMP 98.6; O2SAT 99
[2024-05-12 06:47] LABS: Alkaline Phosphatase 76 U/L (46-116); Anion Gap 8 (5-15); Aspartate Aminotransferase 31 U/L (13-40); Bilirubin, Total 0.9 mg/dL (0.2-1.0); Blood Urea Nitrogen 19 mg/dL (9-23); Carbon Dioxide 21 mmol/L (20-31); Chloride 106 mmol/L (98-107); Total Protein 6.7 g/dL (5.7-8.2)
[2024-05-12 06:48] LABS: Alanine Aminotransferase 45 U/L (7-40); Albumin 3.1 g/dL (3.2-4.8); Calcium 8.3 mg/dL (8.7-10.4); Glucose 108 mg/dL (74-106); Potassium 3.4 mmol/L (3.5-5.1); Sodium 135 mmol/L (136-145)
[2024-05-12 08:23] VITALS: BP 140/85; PULSE 77; RESP 18; TEMP 98.4; O2SAT 100
[2024-05-12 09:07] LABS: Basophils # (auto) 0.1 10 ^3/uL (0-0.2); Eosinophils # (auto) 0.1 10 ^3/uL (0-0.8); Mean Corpuscular Volume 88.5 fL (80.0-100.0)
[2024-05-12 09:09] LABS: Basophils % (auto) 0.4 % (0.0-2.0); Eosinophils % (auto) 0.6 % (0.0-7.0); Hematocrit 36.2 % (41.0-53.0); Hemoglobin 12.1 g/dL (13.5-17.5); Lymphocytes # (auto) 2.2 10 ^3/uL (0.4-5.4); Lymphocytes % (auto) 16.1 % (10.0-50.0); Mean Corpuscular Hemoglobin 29.6 pg (28.0-32.0); Mean Corpuscular Hgb Conc. 33.5 g/dL (32.0-36.0); Monocytes % (auto) 7.1 % (0.0-12.0); Neutrophils # (auto) 10.5 10 ^3/uL (1.6-8.6); Neutrophils % (auto) 75.8 % (37.0-80.0); Nucleated Red Blood Cells % 0.2 %; Red Blood Cells 4.09 10^6/uL (4.5-5.90); Red Cell Distribution Width 13.3 % (11.8-14.3); White Blood Cell 13.9 10^3/uL (4.4-10.8)
[2024-05-12 09:11] LABS: Platelet Count (auto) 524 10^3/uL (140-450)
--- NOTE | 2024-05-12 10:43 | DVHPN2 ---
Progress Note Date Seen: May 12, 2024 Medical Necessity Reason Pt with a Central, PICC or Fol: No Subjective Patient reports: No new complaints Review of Systems: HEENT:Normal, CVS:Normal, RESPIRATORY:Normal, GI:Normal, :Normal, MSK:Normal, NEURO:Normal Objective vital signs Vital Sign Date Time Temp Pulse Resp B/P (MAP) Pulse Ox O2 Delivery O2 Flow Rate FiO2 05/12/24 08:23 98.4 77 18 140/85 (103) 100 98.4 05/12/24 08:02 Room Air* 0 21 Total Intake and Output 05/11/24 05/11/24 05/12/24 15:00 23:00 07:00 Intake Total 50 ml 1272 ml 800 ml Output Total 800 ml 600 ml Balance 50 ml 472 ml 200 ml medications Current Medications Medications Dose Ordered Sig/Yaquelin Route Start Time Stop Time Status Last Admin Dose Admin Acetaminophen/ Hydrocodone Bitart 1 tab Q4HP PRN PO 05/03/24 23:45 05/09/24 01:58 1 TAB Ondansetron HCl 4 mg Q4HP PRN IV 05/03/24 23:45 05/08/24 20:39 4 MG Acetaminophen 650 mg Q6HP PRN PO 05/03/24 23:45 Ergocalciferol 50,000 unit Q7D PO 05/04/24 15:00 05/11/24 17:08 50,000 UNIT Hydromorphone HCl 0.5 mg Q4HPRN PRN IV 05/06/24 11:30 05/09/24 05:44 0.5 MG Lorazepam 0.5 mg Q8HP PRN IV 05/06/24 11:30 05/08/24 18:17 0.5 MG Vancomycin HCl 0 ml @ 0 mls/hr UD IV 05/06/24 11:30 Ceftriaxone Sodium 50 ml @ 100 mls/hr DAILY@09 IV 05/07/24 09:00 05/12/24 09:14 100 MLS/HR Sodium Chloride 1,000 ml @ 100 mls/hr Q10H IV 05/11/24 11:00 05/11/24 11:29 100 MLS/HR Examination: GENERAL:Normal, HEENT:Normal, NECK:Normal, LUNGS:Normal, CVS:Normal, ABDOMEN:Normal, MSK:Normal, SKIN:Normal, NEURO:Normal, :Normal, :Abnormal (RIGHT NEPHROSTOMY) laboratory and microbiology Laboratory Tests 05/12/24 08:40 05/12/24 05:34 Test 05/12/24 05:34 Range/Units Serum Glucose 108 H 74-106 mg/dL Microbiology Date/Time Source Procedure Growth Status 05/10/24 14:50 Blood Blood Culture - Preliminary NO GROWTH AFTER 24 HOURS OF INCUBATION. Resulted 05/05/24 11:20 Aspirate Gram Stain - Final Complete 05/05/24 11:20 Body Fluid Culture - Final Methicillin Resistant S.aureus#2 Methicillin Resistant S.aureus Complete 05/04/24 13:36 Voided Urine Urine Culture - Final Methicillin Resistant S.aureus Complete Problem List/Assessment/Plan Problem List/Assessment/Plan #1 uti with sepsis with mrsa: iv vanc, iv rocephin #2 right renal stone with hydronephrosis: nephrostomy tube #3 acute renal failure ? vasomotor nephropathy ?obstructive: ivf #4 drug abuse with amphetamines/fentanyl #5 thrombocytopenia: improved #6 liver failure #7 hyponatremia #8 tobacco abuse: advised to quit, nicotine patch- time spent 11 mins advance care planning- full code- time spent 19 mins Plan discussed with: Patient My Orders My Orders Orders - JOHNATHON HORVATH MD Procedure Category Date Status Time Sodium Chloride 0.9% PHA 05/11/24 In Process 11:00 Discontinue Tele SHY 05/11/24 In Process 10:56 Transfer Orders XFER 05/11/24 Transmitted 10:56 Date of Service: May 12, 2024 Billing Provider: JOHNATHON HORVATH MD Common Visit Codes: [id number] INP/OBS CARE(HIGH) Secondary Visit Codes: [id number] CHNG SMOKING >10MIN JOHNATHON HORVATH MD May 12, 2024 10:43
[2024-05-12] MEDS: POTASSIUM CHL 20 Meq TABLET PO ONE (11:26)
[2024-05-12] MEDS: NICOTINE 21MG/24 HR TOPICAL PATCH TD ONE (11:27)
[2024-05-12 12:07] VITALS: BP 141/78; PULSE 80; RESP 18; TEMP 98.4; O2SAT 97
[2024-05-12] MEDS: VANCOMYCIN 750MG KIT 100 ML IV SCH (12:11)
[2024-05-12 16:33] VITALS: BP 118/70; PULSE 46; RESP 18; TEMP 98.7; O2SAT 96
[2024-05-12 20:00] VITALS: PULSE 94; RESP 19; O2SAT 97
[2024-05-12 21:00] VITALS: BP 107/66; PULSE 94; RESP 19; TEMP 98.6; O2SAT 97
[2024-05-13 01:00] VITALS: BP 105/65; PULSE 83; RESP 16; TEMP 98; O2SAT 99
[2024-05-13 05:00] VITALS: BP 134/82; PULSE 92; RESP 18; TEMP 97.9; O2SAT 98
[2024-05-13 06:06] LABS: Eosinophils # (auto) 0.1 10 ^3/uL (0-0.8); Hemoglobin 11.7 g/dL (13.5-17.5); Lymphocytes # (auto) 1.8 10 ^3/uL (0.4-5.4); Nucleated Red Blood Cells % 0.1 %; White Blood Cell 9.3 10^3/uL (4.4-10.8)
[2024-05-13 06:09] LABS: Basophils # (auto) 0.1 10 ^3/uL (0-0.2); Basophils % (auto) 1.4 % (0.0-2.0); Eosinophils % (auto) 0.7 % (0.0-7.0); Hematocrit 34.6 % (41.0-53.0); Lymphocytes % (auto) 19.2 % (10.0-50.0); Mean Corpuscular Hemoglobin 29.7 pg (28.0-32.0); Mean Corpuscular Hgb Conc. 33.7 g/dL (32.0-36.0); Monocytes # (auto) 0.8 10 ^3/uL (0-1.3); Monocytes % (auto) 8.1 % (0.0-12.0); Neutrophils # (auto) 6.6 10 ^3/uL (1.6-8.6); Neutrophils % (auto) 70.6 % (37.0-80.0); Platelet Count (auto) 622 10^3/uL (140-450); Red Blood Cells 3.93 10^6/uL (4.5-5.90); Red Cell Distribution Width 13.5 % (11.8-14.3)
[2024-05-13 06:26] LABS: Anion Gap 9 (5-15); Carbon Dioxide 22 mmol/L (20-31); Chloride 106 mmol/L (98-107); Sodium 137 mmol/L (136-145)
[2024-05-13 06:32] LABS: BUN/Creatinine Ratio 12.4 (10.0-20.0); Blood Urea Nitrogen 16 mg/dL (9-23)
[2024-05-13 06:38] LABS: Calcium 8.6 mg/dL (8.7-10.4); Glucose 113 mg/dL (74-106); Potassium 3.3 mmol/L (3.5-5.1)
[2024-05-13 08:00] VITALS: PULSE 114; RESP 17; O2SAT 98
[2024-05-13] MEDS: NICOTINE 21MG/24 HR TOPICAL PATCH TD SCH (10:00)
[2024-05-13 10:56] VITALS: BP 133/73; PULSE 114; RESP 17; TEMP 98.1; O2SAT 98
--- NOTE | 2024-05-13 11:16 | DVHDS ---
DATE OF DISCHARGE: 05/12/2024 HISTORY OF PRESENT ILLNESS: The patient is a 48-year-old gentleman who was admitted with a history of severe flank pain, nausea and vomiting and chills. The patient has previous history of kidney stones. HOSPITAL COURSE: The patient had blood cultures positive for MRSA along with a urine culture positive for MRSA. The patient was seen in Urology consult by Dr. Padron. The patient had a nephrostomy tube placed by Interventional Radiology. The patient had acute renal failure with a creatinine of 5.2 that improved to 1.2 at time of discharge. White count was elevated as high as 28,000 that improved to 9000 at time of discharge. The patient's toxicology screen was positive for fentanyl, amphetamines and cannabis. The patient will now be transferred to a long-term facility for intravenous antibiotics. He will be on medications as per medication reconciliation. FINAL DIAGNOSES: Therefore, * Urinary tract infection with sepsis secondary to methicillin-resistant Staphylococcus aureus. * Right renal stone with hydronephrosis, status post nephrostomy tube placement. * Acute renal failure, questionable vasomotor nephropathy, questionable obstructive. * Drug abuse with amphetamines and fentanyl. * Tobacco abuse. * Thrombocytopenia. * Acute liver failure. * Hyponatremia. Time spent in discharge planning and review of plan with the patient, nursing and paperwork was 39 minutes. MD COLLETTE Barton/JULES TID: [id number] RECEIPT: [id number]
[2024-05-13] MEDS: POTASSIUM CHL 20 Meq TABLET PO ONE (12:23)
[2024-05-13 13:00] VITALS: BP 139/59; PULSE 99; RESP 17; TEMP 98; O2SAT 97
[2024-05-13 17:00] VITALS: BP 123/76; PULSE 93; RESP 17; TEMP 98.2; O2SAT 97
== END 2024-05-13 19:32 | DRG 720 ==
LOC: EDBD 19:42 → ER 19:42 → OVERFLOW 23:42 → EAST 05-04 02:56 → TELE-EAST 05-05 09:07 → EAST 05-11 12:23
PROVIDERS: ADMIT Internal Medicine; ATTEND Internal Medicine
PROC: 30233R1 Transfusion of Nonautologous Platelets into Peripheral Vein, Percutaneous Approach (ICD-10-PCS; principal; 2024-05-05)
PROC: 0T933ZZ Drainage of Right Kidney Pelvis, Percutaneous Approach (ICD-10-PCS; 2024-05-05)
PROC: BT111ZZ Fluoroscopy of Right Kidney using Low Osmolar Contrast (ICD-10-PCS; 2024-05-05)
DX: A41.02 Sepsis due to Methicillin resistant Staphylococcus aureus (principal); N17.0 Acute kidney failure with tubular necrosis; K72.00 Acute and subacute hepatic failure without coma; D69.6 Thrombocytopenia, unspecified; E87.1 Hypo-osmolality and hyponatremia; N13.9 Obstructive and reflux uropathy, unspecified; N13.6 Pyonephrosis; N21.1 Calculus in urethra; F15.10 Other stimulant abuse, uncomplicated; N20.0 Calculus of kidney; Z79.899 Other long term (current) drug therapy; Z87.442 Personal history of urinary calculi; Z90.5 Acquired absence of kidney; Z93.6 Other artificial openings of urinary tract status; Z72.0 Tobacco use
CPT/HCPCS: 36415; 71045; 74176; 74425; 76775; 76942; 80048; 80053; 80202; 80307; 81001; 82306; 82550; 82565; 83036; 83605; 83970; 84100; 84550; 85007; 85025; 85027; 85610; 85730; 86850; 86900; 86901; 87040; 87077; 87086; 87088; 87186; 87205; 96365; 96375; 99152; G0378; J1885; J2185; J2250; J2405; Q9967

== ENCOUNTER 2024-07-02 06:01 | Day surgery (SDC) | payer MEDICAID ==
[2024-06-30 10:54] LABS: Basophils # (auto) 0 10 ^3/uL (0-0.2); Basophils % (auto) 0.6 % (0.0-2.0); Eosinophils # (auto) 0 10 ^3/uL (0-0.8); Eosinophils % (auto) 0.8 % (0.0-7.0); Hemoglobin 9.7 g/dL (13.5-17.5); Lymphocytes # (auto) 1.2 10 ^3/uL (0.4-5.4); Lymphocytes % (auto) 26.9 % (10.0-50.0); Mean Corpuscular Hgb Conc. 32.4 g/dL (32.0-36.0); Mean Corpuscular Volume 83.2 fL (80.0-100.0); Monocytes # (auto) 0.3 10 ^3/uL (0-1.3); Monocytes % (auto) 6.8 % (0.0-12.0); Neutrophils # (auto) 2.8 10 ^3/uL (1.6-8.6); Neutrophils % (auto) 64.9 % (37.0-80.0); Platelet Count (auto) 558 10^3/uL (140-450); White Blood Cell 4.4 10^3/uL (4.4-10.8)
[2024-06-30 11:06] LABS: INR 1.04 (0.9-1.15); Partial Thromboplastin Time 29.8 SEC (24.5-34.5)
[2024-06-30 11:18] LABS: Urine Bacteria FEW /hpf (None Seen); Urine Blood 2+ /uL (Negative); Urine Clarity Turbid (Clear); Urine Color Light-Yellow (Yellow); Urine Mucus FEW (None Seen); Urine Protein, UAD Negative (Negative); Urine Specific Gravity 1.014 (1.001-1.035); Urine Squamous Epithelial Cell FEW /hpf (<5); Urine Urobilinogen Normal (Negative); Urine WBC 212 /HPF (0-3); Urine pH 5.5 (5.0-9.0)
[2024-06-30 11:28] LABS: Alanine Aminotransferase 21 U/L (7-40); Albumin 4.5 g/dL (3.2-4.8); Alkaline Phosphatase 69 U/L (46-116); Anion Gap 6 (5-15); Aspartate Aminotransferase 16 U/L (13-40); BUN/Creatinine Ratio 11.8 (10.0-20.0); Bilirubin, Total 0.4 mg/dL (0.2-1.0); Blood Urea Nitrogen 18 mg/dL (9-23); Calcium 9.8 mg/dL (8.7-10.4); Carbon Dioxide 26 mmol/L (20-31); Glucose 94 mg/dL (74-106); Potassium 4.2 mmol/L (3.5-5.1); Sodium 141 mmol/L (136-145)
[2024-06-30 11:30] LABS: Chloride 109 mmol/L (98-107); Total Protein 8.3 g/dL (5.7-8.2)
[~2024-07-02] VITALS: Ht 172.7 cm; Wt 77.6 kg
[2024-07-02] MEDS ORDERED: ceFAZolin 2 GM/D5W50ml 50 ML IV ONE (06:12)
[2024-07-02] MEDS ORDERED: PROPOFOL 10 MG/ML 20 ML IV ONE (07:13)
[2024-07-02] MEDS ORDERED: MIDAZOLAM HCL 2MG/2ML 2ml VIAL (1mg/ml) ONE (07:13)
[2024-07-02] MEDS ORDERED: fentaNYL CITRATE 100 MCG/2 ML VL ONE ×2 (07:13→07:42)
[2024-07-02] MEDS ORDERED: LIDOCAINE 2% (LOCAL ANESTH.) PF 5ml SDV ONE (07:13)
[2024-07-02] MEDS: IOHEXOL 300 MG/ML 100ML BOTTLE IJ ONE (07:50)
--- NOTE | 2024-07-02 08:04 | DVHNC2 ---
Procedure - OPERATIVE REPORT Pre-op. Diagnosis: Right Proximal ureteral stone, 1.5 x 0.6 cm Right PNT, in situ Right lower pole stone, 4 mm Post-op. Diagnosis: Same as pre-op diagnosis Operation: Extracorporeal Shockwave Lithotripsy Anesthesia: General Indications: Patient was found to have symptomatic Urolithiasis. Patient is here to undergo ESWL therapy. Informed Consent: The procedure was explained to the patient. It's risks include but not limited to infection, bleeding, and damage to the kidney. Patient fully understood and signed the consent.Other options such as watchful waiting, Ureteroscopy, Percutaneous surgery and open surgery were also discussed. Details of Procedure: Under satisfactory anesthesia, the patient was positioned on the lithotripsy table. Using fluoroscopy the ureteral stone was localized only by injection contrast through the nephrostomy tube. The stone was radiolucent and contrast revealed the filling defect in the proximal ureter. Starting at low energy levels, shockwave treatment was commenced. The energy level was gradually increased and stone was fragmented. Next the right lower pole 4 mm stone was treated with 500 shocks. Once the treatment was completed, the nephrostomy tube was closed with a cap. The patient was then taken off the lithotripsy table and sent to recovery room in stable condition. Specimens: None Complications: None Findings: Stone Laterality: RightStone Location: Proximal ureteral stone 1.5 cm x 0.6 cmShocks Delivered: 3000Max Power settinFragmentation Quality: WellRight PNT clamped Notes: Will remove nephrostomy tube in clinic on POD#1 if tolerating closure.Patient has left renal stones to be treated with ESWL at later time Visit Code: Procedure Codes: [id number] FRAGMENTING OF KIDNEY STONE. THOMAS DOWLING MD Jul 02, 2024 08:04
--- NOTE | 2024-07-02 08:06 | DVHDS2 ---
New Physician D'charge PN Admitting Diagnosis Admitting Diagnosis Right Proximal ureteral calculus Right renal calculi Right percutaneous nephrostomy tube in Situ Discharge Diagnosis Same Operations or Procedures Extracorporeal shockwave lithotripsy Right nephrostogram Reason(s) For Hospitalization Surgery Treatment Plan Discharge Condition of Discharge Good Disposition Home Discharge Instructions Diet: Regular Activity: Light activity Activity comment: As tolerated Medications: Given Follow Up Care Follow Up/Referral: Patient will need left ESWL in 2-3 weeks The right nephrostomy tube is closed and will be removed in 24 hours if tolerated Discharge Statement: "Patient was advised to return to the ER or call 911 if any headaches, dizziness, shortness of breath, chest pain, abdominal pain, bleeding, fevers, or worsening of medical condition. Patient was counseled about treatment plan, medications, possible side effects, patientverbalized understanding. All questions were answered to the best of my ability. This discharge took greater then 30 minutes in planning, reviewing documentation, counseling the patient, and discussing with other team members." THOMAS DOWLING MD Jul 02, 2024 08:06
[2024-07-02] MEDS ORDERED: GLYCOPYRROLATE 0.2 MG/ML 1ML VIAL ONE (08:41)
[2024-07-02] MEDS ORDERED: NEOSTIGMINE 1 MG/ML INJ (10mg/10ML VIAL) ONE (08:42)
[2024-07-02] MEDS ORDERED: ONDANSETRON HCL 4 MG/2 ML VIAL ONE (08:42)
[2024-07-02 08:45] VITALS: PULSE 77; RESP 16; O2SAT 99
[2024-07-02 09:35] VITALS: BP 134/88; PULSE 67; RESP 14; O2SAT 100
== END 2024-07-02 09:40 | disposition home or self-care (01) ==
LOC: SUR 06:01
PROVIDERS: ATTEND Urology
DX: N20.2 Calculus of kidney with calculus of ureter (principal); F17.210 Nicotine dependence, cigarettes, uncomplicated; I10 Essential (primary) hypertension; Z86.19 Personal history of other infectious and parasitic diseases; Z98.890 Other specified postprocedural states
CPT/HCPCS: 36415; 50590; 80053; 81001; 85025; 85610; 85730; 87086; J0690; J2003; J2250; J2405; J2704; J3010; Q9967